=== PATIENT | female | born 1935 | race Caucasian/White ===

== ENCOUNTER → 2017-05-11 | Outpatient (CLI) | payer MEDICARE | LOC: LABWHC1 12:06 | PROVIDERS: ATTEND Internal Medicine | DX: Z53.9 Procedure and treatment not carried out, unspecified reason (principal) | CPT/HCPCS: 36415; 85025; 86850; 86900; 86901; 86920 ==

== ENCOUNTER → 2018-05-10 | Outpatient (CLI) | payer MEDICARE ==
--- NOTE | 2018-05-11 08:07 | MM ---
Reason for exam: additional evaluation requested from prior study. History: Patient is postmenopausal. Family history of breast cancer in sister at age 74. Took estrogen for 2 years beginning at age 59. Took progesterone for 2 years beginning at age 59. Physical Findings: Nurse did not find any significant physical abnormalities on exam. MG 3D Diag Mammo W/Cad RANDY Bilateral CC and MLO view(s) were taken. There are scattered fibroglandular densities. There are bilater massed stable from prior at posterion depth right upper outer quadrant and left lower outer quadrant midle depth. There are benign appearing overall stable calcifications. No suspicios abnormality. Right biopsy marker noted. These results were verbally communicated with the patient and result sheet given to the patient on 05/10/18. ASSESSMENT: Benign, BI-RAD 2 RECOMMENDATION: Routine screening mammogram of both breasts in 1 year.
--- NOTE | 2018-05-11 08:14 | USB ---
Reason for exam: additional evaluation requested from prior study. History: Patient is postmenopausal. Family history of breast cancer in sister at age 74. Took estrogen for 2 years beginning at age 59. Took progesterone for 2 years beginning at age 59. Physical Findings: Nurse did not find any significant physical abnormalities on exam. US Breast RT Right complete breast ultrasound includes all four quadrants, the retroareolar region and axilla. Finding demonstrates a 0.4 x 0.2 x 0.1m cluster oval cystic lesion at 12 o'clock. No suspicious sonographic findings. ASSESSMENT: Benign, BI-RAD 2 RECOMMENDATION: Routine screening mammogram of both breasts in 1 year.
== END | disposition home or self-care (01) ==
LOC: RADMAMWWP 12:19
PROVIDERS: ATTEND Internal Medicine
DX: R92.8 Other abnormal and inconclusive findings on diagnostic imaging of breast (principal)
CPT/HCPCS: 77066; 76641; G0279; 77062

== ENCOUNTER → 2018-12-06 | Outpatient (CLI) | payer MEDICARE ==
[2018-12-06 16:31] LABS: HCT 38.8 % (34.0-46.0); Hypochromasia Marked; MCH 25.3 pg (25.0-35.0); MCHC 28.5 g/dL (31.0-37.0); MCV 88.9 fL (80.0-100.0); Mean Platelet Volume 7.9; Platelet Count 209 k/uL (150-450); RBC 4.36 m/uL (3.80-5.40); RDW 15.1 % (11.5-15.5); WBC 4.5 k/uL (3.8-10.6)
[2018-12-07 02:07] LABS: Anion Gap 9.5 mmol/L (4.00-12.00); Calcium 9.3 mg/dL (8.7-10.3); Carbon Dioxide 22.5 mmol/L (21.6-31.8); Potassium 4.3 mmol/L (3.5-5.5)
== END | disposition home or self-care (01) ==
LOC: LABWHC1 16:00
PROVIDERS: ATTEND Internal Medicine Interventional Cardiology
DX: I25.10 Atherosclerotic heart disease of native coronary artery without angina pectoris (principal); D64.9 Anemia, unspecified
CPT/HCPCS: 36415; 80048; 85027

== ENCOUNTER 2018-12-28 09:13 | Day surgery (SDC) | payer MEDICARE ==
[2018-12-17 15:40] VITALS: BMI 29.5
[~2018-12-28 09:13] MED LIST: ALPRAZolam 0.25 MG TAB PO PRN; ALPRAZolam 0.5 MG TAB PO PRN; ASPIRIN 325 MG TAB PO STA; ATORVASTATIN 80 MG TAB PO STA; NITROGLYCERIN SL TABS 0.4 MG TAB SUBLINGUAL PRN; SODIUM CHLORIDE 0.9% 1,000 ML in EMPTY BAG 1 BAG IV ONE
[2018-12-28] MEDS ORDERED: SODIUM CHLORIDE 0.9% 1,000 ML IV ONE (10:49)
[2018-12-28] MEDS ORDERED: HEPARIN SODIUM 1,000 UN/ML (10ML VL) ONE (10:52)
[2018-12-28] MEDS ORDERED: VERAPAMIL 2.5 MG/ML 2 ML AMP ONE (10:52)
[2018-12-28] MEDS ORDERED: LIDOCAINE 1% INJ 10MG/ML (20 ML MDV) ONE (10:52)
[2018-12-28] MEDS ORDERED: MIDAZOLAM 2 MG/2 ML VIAL IVP ONE ×2 (11:18→11:23)
[2018-12-28] MEDS ORDERED: VERAPAMIL SYRINGE (5 MG/10 ML) INTRAARTER ONE (11:25)
[2018-12-28] MEDS ORDERED: HEPARIN SODIUM 1,000 UN/ML (10ML VL) IV ONE (11:28)
[2018-12-28] MEDS ORDERED: NITROGLYCERIN SL TABS 0.4 MG TAB SUBLINGUAL ONE (11:45)
[2018-12-28] MEDS ORDERED: BIVALIRUDIN BOLUS 250 MG/50 ML IV ONE (11:45)
[2018-12-28] MEDS ORDERED: NITROGLYCERIN 1000MCG/10ML SYRINGE INTRACORON ONE ×3 (11:46→12:08)
[2018-12-28] MEDS ORDERED: BIVALIRUDIN 250 MG in SODIUM CHLORIDE 0.9% 50 ML IV ONE (11:46)
[2018-12-28] MEDS ORDERED: IOPAMIDOL-370 100ML BTL INJ ONE ×2 (11:51→12:12)
[2018-12-28] MEDS ORDERED: CLOPIDOGREL 75 MG TAB ONE (12:07)
--- NOTE | 2018-12-28 12:58 | CC ---
CARDIAC CATHETERIZATION REPORT TITLE OF PROCEDURE: Left heart catheterization, coronary angiography and PTCA and stenting of proximal LAD. PERFORMED BY: Dr. Vish Starks. Moderate conscious sedation time was 51 minutes. CLINICAL INFORMATION: Bennie Zaragoza is an 83-year-old lady with a known history of hypertension, hyperlipidemia, who has been having nondescript chest tightness and pressure, had a stress test which revealed anteroapical reversible defect suggestive of ischemia. She was therefore advised coronary angiography. Risks, benefits, options were explained in detail. PROCEDURE NOTE: Under local anesthesia and strict aseptic precautions, a 6-I[place]ic introducer was placed in the right radial artery. Using a JR4 catheter, I performed selective coronary angiography of the RCA. Using an Ultimate 1 catheter I performed selective coronary angiography of the left system. LV pressures were checked with the right catheter but did not do an LV-gram. Following this, I proceeded to perform PCI of the proximal LAD which had a 70% lesion. CARDIAC CATHETERIZATION FINDINGS: The left ventricular end-diastolic pressure was 14 mmHg without any gradient across the aortic valve. CORONARY ANGIOGRAPHY FINDINGS: RIGHT CORONARY ARTERY: Very super dominant vessel, has no significant disease in the proximal mid and distal portion, bifurcates into a larger PLV, smaller PDA both of which have minor irregularities. The PLV has about a 40% lesion in the midportion. Large vessel with a large distribution. No significant disease overall in the super dominant RCA. LEFT MAIN CORONARY ARTERY: Very short vessel that immediately bifurcates into LAD and circumflex. No significant disease in the left main. LEFT ANTERIOR DESCENDING CORONARY ARTERY: This has a very eccentric proximal 75% to 80% lesion and then it gives off 2 diagonal branches and after this at the origin of 2 septal branches, there is a 40% narrowing and the vessel decreases in caliber, runs all the way to the apex supplying a fair amount of myocardium. Distally the vessel is small in caliber, the distal 1/4, and it divides into 2 small branches that curves over the apex to supply the inferoapical portion of left ventricle. The LAD therefore in the midportion has a 40% lesion proximally, has a 75% to 80% lesion and there are 2 diagonal branches that come up between these 2 lesions. In multiple projections, the mid lesion does not look significant. Distally, however, there is diffuse disease in the LAD and it divides into 2 branches. LEFT POSTERIOR CIRCUMFLEX CORONARY ARTERY: Technically nondominant vessel gives off a high first obtuse marginal that runs laterally, divides into 2 branches. No significant disease. Rest of the circumflex has minor irregularities. No significant disease is noted in the nondominant circumflex system. LEFT VENTRICULOGRAM: This was not performed. FINAL IMPRESSION: This patient has a right dominant system, 40% PLV lesion of the RCA. Otherwise, no significant disease. Left main is free of significant disease and nondominant circumflex is free of significant disease. Proximal LAD has a 75% to 80% lesion. Mid LAD has a 40% to 45% lesion and diffuse disease in the distal LAD noted. Filling pressures are normal and there is no gradient across aortic valve. RECOMMENDATION: I recommended PCI of LAD and performed in the same setting. PCI PROCEDURE DETAILS: Initially I tried an XBLAD 3.5 catheter but with this I was deep the circumflex and therefore I switched over to a JL3.5. With this catheter, I advanced a BMW wire and kept it in the diagonal branch. Another BMW was introduced with steeper curved and I was able to get into the LAD without a problem. Without predilatation, a 8 mm long 3.25 caliber Xience stent was deployed at 14 atmospheres. Patient had chest pain and precordial ST elevation. Excellent angiographic result was achieved. The patient received Angiomax bolus and infusion as per protocol and 600 mg of Plavix were given. Excellent angiographic result was achieved. The mid lesion beyond the stented segment after the 2 diagonal branches was no more than 40% to 45% in multiple projections and therefore no intervention was performed. After this lesion, the entire vessel had mild diffuse disease throughout and gave of distally 2 branches. Excellent angiographic result without complication was achieved. Results were discussed with the patient and family and I expect her to be discharged tomorrow on dual antiplatelet therapy. MMODL / IJN: [id number] /
[2018-12-28] MEDS: SODIUM CHLORIDE 0.9% 1,000 ML IV SCH (13:22)
[2018-12-28] MEDS: LISINOPRIL 10 MG TAB PO SCH (16:47)
[2018-12-28] MEDS ORDERED: amLODIPine 5 MG TAB PO STA (18:06)
[2018-12-28] MEDS ORDERED: METOPROLOL TARTRATE 25 MG TAB PO SCH (21:00)
[2018-12-28] MEDS: METOPROLOL TARTRATE 12.5 MG TAB PO SCH (21:11)
[2018-12-28 22:18] LABS: Magnesium 1.8 mg/dL (1.6-2.3); Potassium 4.2 mmol/L (3.5-5.1)
[2018-12-29] MEDS: SODIUM CHLORIDE 0.9% 1,000 ML IV SCH (01:08)
[2018-12-29 07:47] LABS: Basophils % (A) 1 %; Eosinophils # (A) 0.1 k/uL (0-0.7); Eosinophils % (A) 3 %; HCT 34.2 % (34.0-46.0); HGB 10.2 gm/dL (11.4-16.0); Hypochromasia Marked; Lymphocytes # (A) 0.7 k/uL (1.0-4.8); Lymphocytes % (A) 16 %; MCH 26.3 pg (25.0-35.0); MCHC 29.9 g/dL (31.0-37.0); Mean Platelet Volume 8.8; Monocytes # (A) 0.3 k/uL (0-1.0); Monocytes % (A) 8 %; Neutrophils # (A) 3.1 k/uL (1.3-7.7); Neutrophils % (A) 71 %; Platelet Count 161 k/uL (150-450); RBC 3.88 m/uL (3.80-5.40); RDW 14.5 % (11.5-15.5); WBC 4.4 k/uL (3.8-10.6)
[2018-12-29 07:48] LABS: Anion Gap 4 mmol/L; Blood Urea Nitrogen 22 mg/dL (7-17); Calcium 8.9 mg/dL (8.4-10.2); Carbon Dioxide 24 mmol/L (22-30); Chloride 112 mmol/L (98-107); Glucose 95 mg/dL (74-99); Potassium 4.8 mmol/L (3.5-5.1); Sodium 140 mmol/L (137-145)
[2018-12-29] MEDS: METOPROLOL TARTRATE 12.5 MG TAB PO SCH (08:08)
[2018-12-29] MEDS: LISINOPRIL 10 MG TAB PO SCH (08:08)
[2018-12-29 08:22] VITALS: BP 123/58; PULSE 89; RESP 18; TEMP 97.4
--- NOTE | 2018-12-29 08:35 | DS ---
DISCHARGE SUMMARY DATE OF ADMISSION: 12/28/2018 DATE OF DISCHARGE: 12/29/2018 DIAGNOSES: 1. Unstable angina. 2. Cardiomyopathy. 3. Hypertension. PROCEDURES PERFORMED: 1. Left heart catheterization and coronary angiography. 2. PTCA and stenting of proximal LAD with a drug-eluting stent. CLINICAL INFORMATION: Mr. Zaragoza was admitted for elective cardiac cath and possible PCI yesterday. Procedure was performed from right radial approach. The proximal LAD had a 70%-80% eccentric stenosis. This was stented with a drug-eluting stent. There was another mid LAD lesion of 45%, which was not addressed. Excellent angiographic result was achieved. Post PCI course was unremarkable. EKG revealed sinus mechanism with left bundle which is not new for her. Labs are unremarkable compared to baseline labs. Blood pressure is 130/70 pulse rate is 62 per minute. S1-S2 heard normally, short systolic murmur. Lungs are clear. Abdomen and lower extremity exam unchanged. Right radial cath site is clean and dry with a good pulse. EKG and labs were reviewed. Patient can be discharged and she will see me in the office this Thursday at 4 pm. Discharge instructions regarding activity, diet and medications were given. MMODL / IJN: [id number] /
[2018-12-29] MEDS ORDERED: CLOPIDOGREL 75 MG TAB PO SCH (09:00)
[2018-12-29] MEDS ORDERED: ATORVASTATIN 40 MG TAB PO SCH (09:00)
[2018-12-29] MEDS ORDERED: ASPIRIN 81 MG PO SCH (09:00)
== END 2018-12-29 09:18 | disposition home or self-care (01) ==
LOC: CATHCVL 09:13 → 3SCARD 12:17 → CATHCVL 12-29 09:18
PROVIDERS: ATTEND Internal Medicine Interventional Cardiology
DX: I25.110 Atherosclerotic heart disease of native coronary artery with unstable angina pectoris (principal); I10 Essential (primary) hypertension; E78.5 Hyperlipidemia, unspecified; R94.39 Abnormal result of other cardiovascular function study; I42.9 Cardiomyopathy, unspecified; E78.00 Pure hypercholesterolemia, unspecified; Z72.0 Tobacco use; Z79.899 Other long term (current) drug therapy; Z88.5 Allergy status to narcotic agent
CPT/HCPCS: 93458; 80048; 83735; 84132; 85025; C9600; C1887 ×2; C1769 ×3; C1874; C1894; J2250; J1644; J0583; Q9967

== ENCOUNTER 2019-03-10 10:43 | Inpatient (IN) | payer MEDICARE ==
[2019-03-10] MEDS ORDERED: PANTOPRAZOLE 40 MG/10 ML VIAL IVP STA (11:48)
[2019-03-10] MEDS ORDERED: SODIUM CHLORIDE 0.9% 500 ML 500 ML IV STA (11:48)
--- NOTE | 2019-03-10 12:09 | ED ---
General Adult HPI - General Chief complaint: GI Bleed Stated complaint: Internal Bleeding Time Seen by Provider: 03/10/19 11:00 Source: patient, RN notes reviewed Mode of arrival: wheelchair Limitations: no limitations - History of Present Illness Initial comments: This is an 83-year-old female who presents emergency Department with a history of GI bleed with transfusions. Patient states she was told at the doctor's office that her hemoglobin was 6 and she has been feeling weak and lightheaded lately and getting out of breath quickly with any small exertion so she was told to come to the emergency department. Patient denies any pain. Patient does states she's been having black stools no obviously red bloody stools. Patient states she is on Plavix and aspirin. Patient states she didn't take aspirin today but did take her Plavix. Patient denies any chest pain or palpitations. Patient does state she has shortness of breath with exertion evening walking a few feet. Patient denies headache patient denies numbness weakness. Patient denies any near syncopal episode but does feel lightheaded at times. - Related Data Home Medications Medication Instructions Recorded Confirmed Ferrous Sulfate [Iron] 65 mg PO DAILY 09/14/17 12/28/18 Metoprolol Succinate [Toprol XL] 25 mg PO DAILY 09/14/17 12/28/18 Previous Rx's Medication Instructions Recorded Aspirin 81 mg PO DAILY #90 chew 12/29/18 Atorvastatin [Lipitor] 40 mg PO DAILY #90 tab 12/29/18 Clopidogrel [Plavix] 75 mg PO DAILY #90 tab 12/29/18 Lisinopril [Zestril] 10 mg PO BID #60 tab 12/29/18 Nitroglycerin Sl Tabs [Nitrostat] 0.4 mg SUBLINGUAL Q5M PRN #25 tab 12/29/18 Allergies Allergy/AdvReac Type Severity Reaction Status Date / Time codeine Allergy Nausea & Verified 12/17/18 15:30 Vomiting Sulfa (Sulfonamide Allergy Unknown Verified 12/17/18 15:30 Antibiotics) Review of Systems ROS Statement: Those systems with pertinent positive or pertinent negative responses have been documented in the HPI. ROS Other: All systems not noted in ROS Statement are negative. Past Medical History Past Medical History: GI Bleed, Hypertension Additional Past Medical History / Comment(s): ANEMIA, HIATAL HERNIA, SOB History of Any Multi-Drug Resistant Organisms: None Reported Past Surgical History: Cholecystectomy, Heart Catheterization Additional Past Surgical History / Comment(s): D&C, EGD, COLONOSCOPY Past Anesthesia/Blood Transfusion Reactions: Postoperative Nausea & Vomiting (PONV) Past Psychological History: No Psychological Hx Reported Smoking Status: Former smoker Past Alcohol Use History: None Reported Past Drug Use History: None Reported General Exam - General Exam Comments Initial Comments: GENERAL: Patient is well-developed and well-nourished. Patient is nontoxic and well- hydrated and is in mild distress. ENT: Neck is soft and supple. No significant lymphadenopathy is noted. Oropharynx is clear. Moist mucous membranes. Neck has full range of motion without eliciting any pain. EYES: The sclera were anicteric and conjunctiva are pale. Extraocular movements were intact and pupils were equal round and reactive to light. Eyelids were unremarkable. PULMONARY: Unlabored respirations. Good breath sounds bilaterally. No audible rales rhonchi or wheezing was noted. CARDIOVASCULAR: There is a regular rate and rhythm without any murmurs gallops or rubs. ABDOMEN: Soft and nontender with normal bowel sounds. SKIN: Patient's skin is pale. NEUROLOGIC: Patient is alert and oriented x3. Cranial nerves II through XII are grossly intact. Motor and sensory are also intact. Normal speech, volume and content. Symmetrical smile. MUSCULOSKELETAL: Normal extremities with adequate strength and full range of motion. No lower extremity swelling or edema. No calf tenderness. LYMPHATICS: No significant lymphadenopathy is noted PSYCHIATRIC: Normal psychiatric evaluation. Limitations: no limitations Course Vital Signs 03/10/19 03/10/19 03/10/19 10:48 12:22 13:29 Temperature 97.7 F 97.8 F Pulse Rate 74 69 64 Respiratory 18 16 16 Rate Blood Pressure 123/55 108/54 127/65 O2 Sat by Pulse 99 100 100 Oximetry Medical Decision Making - Medical Decision Making EKG shows sinus rhythm with occasional PVC at 69 bpm OK interval 230 QRS is under 12 QT interval 426 QTC is 456. Patient's EKG shows no ST segment elevation or depression. Patient's hemoglobin was 5.8. I ordered 2 units of packed red blood cells. I spoke with some physicians agreed to accept the patient admitted the patient wrote admitting orders I consult to the ICU doctor to place the patient in the ICU. - Lab Data Result diagrams: 03/10/19 12:58 03/10/19 12:58 Lab Results 03/10/19 03/10/19 03/10/19 Range/Units 12:58 12:58 12:58 WBC 4.8 (3.8-10.6) k/uL RBC 2.54 L (3.80-5.40) m/uL Hgb 5.8 L* (11.4-16.0) gm/dL Hct 20.9 L (34.0-46.0) % MCV 82.5 (80.0-100.0) fL MCH 22.9 L (25.0-35.0) pg MCHC 27.8 L (31.0-37.0) g/dL RDW 13.9 (11.5-15.5) % Plt Count 220 (150-450) k/uL Neutrophils % 74 % Lymphocytes % 14 % Monocytes % 7 % Eosinophils % 1 % Basophils % 1 % Neutrophils # 3.6 (1.3-7.7) k/uL Lymphocytes # 0.7 L (1.0-4.8) k/uL Monocytes # 0.4 (0-1.0) k/uL Eosinophils # 0.1 (0-0.7) k/uL Basophils # 0.0 (0-0.2) k/uL Hypochromasia Marked Poikilocytosis Slight PT 9.9 (9.0-12.0) sec INR 0.9 (<1.2) APTT 18.0 L (22.0-30.0) sec Sodium 139 (137-145) mmol/L Potassium 4.3 (3.5-5.1) mmol/L Chloride 111 H (98-107) mmol/L Carbon Dioxide 25 (22-30) mmol/L Anion Gap 3 mmol/L BUN 27 H (7-17) mg/dL Creatinine 0.62 (0.52-1.04) mg/dL Est GFR (CKD-EPI)AfAm >90 (>60 ml/min/1.73 sqM) Est GFR (CKD-EPI)NonAf 83 (>60 ml/min/1.73 sqM) Glucose 98 (74-99) mg/dL Calcium 8.7 (8.4-10.2) mg/dL Magnesium 2.2 (1.6-2.3) mg/dL Total Bilirubin 0.1 L (0.2-1.3) mg/dL AST 18 (14-36) U/L ALT 15 (9-52) U/L Alkaline Phosphatase 45 (38-126) U/L Troponin I (0.000-0.034) ng/mL Total Protein 5.4 L (6.3-8.2) g/dL Albumin 2.9 L (3.5-5.0) g/dL 03/10/19 Range/Units 12:58 WBC (3.8-10.6) k/uL RBC (3.80-5.40) m/uL Hgb (11.4-16.0) gm/dL Hct (34.0-46.0) % MCV (80.0-100.0) fL MCH (25.0-35.0) pg MCHC (31.0-37.0) g/dL RDW (11.5-15.5) % Plt Count (150-450) k/uL Neutrophils % % Lymphocytes % % Monocytes % % Eosinophils % % Basophils % % Neutrophils # (1.3-7.7) k/uL Lymphocytes # (1.0-4.8) k/uL Monocytes # (0-1.0) k/uL Eosinophils # (0-0.7) k/uL Basophils # (0-0.2) k/uL Hypochromasia Poikilocytosis PT (9.0-12.0) sec INR (<1.2) APTT (22.0-30.0) sec Sodium (137-145) mmol/L Potassium (3.5-5.1) mmol/L Chloride (98-107) mmol/L Carbon Dioxide (22-30) mmol/L Anion Gap mmol/L BUN (7-17) mg/dL Creatinine (0.52-1.04) mg/dL Est GFR (CKD-EPI)AfAm (>60 ml/min/1.73 sqM) Est GFR (CKD-EPI)NonAf (>60 ml/min/1.73 sqM) Glucose (74-99) mg/dL Calcium (8.4-10.2) mg/dL Magnesium (1.6-2.3) mg/dL Total Bilirubin (0.2-1.3) mg/dL AST (14-36) U/L ALT (9-52) U/L Alkaline Phosphatase (38-126) U/L Troponin I <0.012 (0.000-0.034) ng/mL Total Protein (6.3-8.2) g/dL Albumin (3.5-5.0) g/dL Disposition Clinical Impression: GI bleed, Anemia, Lightheadedness Disposition: ADMITTED IP TO THIS HOSP Referrals: Jose Shetty MD [Primary Care Provider] - 1-2 days Time of Disposition: 14:12
[2019-03-10 13:45] LABS: ALT 15 U/L (9-52); AST 18 U/L (14-36); African American GFR (CKD) >90 (>60 ml/min/1.73 sqM); Albumin 2.9 g/dL (3.5-5.0); Alkaline Phosphatase 45 U/L (38-126); Anion Gap 3 mmol/L; Blood Urea Nitrogen 27 mg/dL (7-17); Calcium 8.7 mg/dL (8.4-10.2); Carbon Dioxide 25 mmol/L (22-30); Chloride 111 mmol/L (98-107); Glucose 98 mg/dL (74-99); Magnesium 2.2 mg/dL (1.6-2.3); Potassium 4.3 mmol/L (3.5-5.1); Sodium 139 mmol/L (137-145); Total Bilirubin 0.1 mg/dL (0.2-1.3); Total Protein 5.4 g/dL (6.3-8.2)
[2019-03-10 13:51] LABS: INR 0.9 (<1.2); Prothrombin Time 9.9 sec (9.0-12.0)
[2019-03-10 13:52] LABS: Basophils % (A) 1 %; Eosinophils # (A) 0.1 k/uL (0-0.7); Eosinophils % (A) 1 %; HCT 20.9 % (34.0-46.0); Hypochromasia Marked; Lymphocytes # (A) 0.7 k/uL (1.0-4.8); Lymphocytes % (A) 14 %; MCH 22.9 pg (25.0-35.0); MCHC 27.8 g/dL (31.0-37.0); MCV 82.5 fL (80.0-100.0); Monocytes # (A) 0.4 k/uL (0-1.0); Monocytes % (A) 7 %; Neutrophils # (A) 3.6 k/uL (1.3-7.7); Neutrophils % (A) 74 %; Platelet Count 220 k/uL (150-450); Poikilocytosis Slight; RBC 2.54 m/uL (3.80-5.40); RDW 13.9 % (11.5-15.5); WBC 4.8 k/uL (3.8-10.6)
[2019-03-10 14:02] LABS: HGB 5.8 gm/dL (11.4-16.0)
[2019-03-10] MEDS ORDERED: NALOXONE 0.4 MG/ML 1 ML VIAL IV PRN (14:14)
[2019-03-10 16:28] VITALS: BMI 29.2
[2019-03-10 16:29] LABS: Glucose,Whole Blood 98 mg/dL (75-99)
--- NOTE | 2019-03-10 16:42 | P.HPIM ---
History of Present Illness H&P Date: 03/10/19 Chief Complaint: Fatigue weakness and dark stools The patient is a 83-year-old female with a past medical history of CAD with recent angioplasty and subsequent stenting of the proximal LAD in 01/14 currently on antiplatelet therapy with Plavix and aspirin who presents to the ER via private vehicle after being referred from her PCPs clinic patient presented with increased weakness and fatigue. Apparently over the last 2 weeks patient has noted some dark tarry looking stools, and has been increasingly fatigued and weak and reports some associated exertional dyspnea and she is no longer able to walk across her room without being short of breath, she denies any cough but reports subjective fevers and chills. The patient reports some lightheadedness, she denies any nausea vomiting or abdominal pain but reports constipation. The patient reports a previous history of GI bleed several EGDs and colonoscopies and has never been able to find the etiology of her bleed. The patient denies any chest pain, denies lower extremity swelling,denies any bright red blood per rectum. In her PCPs office she was noted to have a hemoglobin of approximately 6.7 referred to the ER. In the ED she had a comprehensive workup Hemoglobin was 5.8, PT INR 9.9 and 0.9 respectively, sodium 139 potassium 4.3, serum bicarb 25, BUN 27, creatinine 0.62, magnesium 2.2 troponin less than 0.012. EKG showing sinus rhythm with occasional PVCs. Apparently a stool guaiac was sent and is pending, Patient was typed and crossed and is receiving her first unit of packed RBCs. She's recommended for admission for GI bleed Review of Systems The pertinent positives per HPI all other review of systems otherwise negative Past Medical History Past Medical History: Coronary Artery Disease (CAD), GI Bleed, Hypertension Additional Past Medical History / Comment(s): ANEMIA, HIATAL HERNIA, SOB History of Any Multi-Drug Resistant Organisms: None Reported Past Surgical History: Cholecystectomy, Heart Catheterization Additional Past Surgical History / Comment(s): D&C, EGD, COLONOSCOPY Past Anesthesia/Blood Transfusion Reactions: Postoperative Nausea & Vomiting (PONV) Past Psychological History: No Psychological Hx Reported Smoking Status: Former smoker Past Alcohol Use History: None Reported Past Drug Use History: None Reported Medications and Allergies Home Medications Medication Instructions Recorded Confirmed Type Ferrous Sulfate [Iron] 325 mg PO DAILY 09/14/17 03/10/19 History Metoprolol Succinate [Toprol XL] 12.5 mg PO BID 09/14/17 03/10/19 History Aspirin 81 mg PO DAILY #90 chew 12/29/18 03/10/19 Rx Clopidogrel [Plavix] 75 mg PO DAILY #90 tab 12/29/18 03/10/19 Rx Nitroglycerin Sl Tabs [Nitrostat] 0.4 mg SUBLINGUAL Q5M PRN #25 tab 12/29/18 03/10/19 Rx Lisinopril [Zestril] 10 mg PO DAILY 03/10/19 03/10/19 History Pnv,Calcium 72/Iron/Folic Acid 1 tab PO DAILY 03/10/19 03/10/19 History [ Plus Tablet] Allergies Allergy/AdvReac Type Severity Reaction Status Date / Time codeine Allergy Nausea & Verified 03/10/19 14:36 Vomiting Sulfa (Sulfonamide Allergy Unknown Verified 03/10/19 14:36 Antibiotics) Physical Exam Vitals: Vital Signs Temp Pulse Resp BP Pulse Ox 03/10/19 16:19 96.6 F L 70 10 L 140/36 98 03/10/19 15:52 97.7 F 62 16 129/53 100 03/10/19 15:23 97.7 F 70 16 139/57 100 03/10/19 15:13 98.1 F 66 16 118/34 100 03/10/19 14:30 124/35 100 03/10/19 13:29 97.8 F 64 16 127/65 100 03/10/19 12:22 69 16 108/54 100 03/10/19 10:48 97.7 F 74 18 123/55 99 Intake and Output 03/10/19 03/10/19 03/10/19 06:59 14:59 22:59 Intake Total 0 Balance 0 Intake: Blood Product 0 Rc As-1 Unit 0 [id number] Other: Weight 74.843 kg Constitutional: No acute distress, conversant, pleasant Eyes: Anicteric sclerae, moist conjunctiva, no lid-lag, PERRLA ENMT: NC/AT,Oropharynx clear, no erythema, exudates Neck:Supple, FROM, no masses, or JVD, No carotid bruits; No thyromegaly Lungs: Clear to auscultation, Clear to percussion, Normal respiratory effort, no accessory muscle use Cardiovascular: Heart regular in rate and rhythm, No murmurs, gallops, or rubs no peripheral edema Abdominal: Soft Nontender, nom distended, no guarding, no rebound or rigidity, Normoactive bowel sounds No hepatomegaly, No splenomegaly, No palpable mass No abdominal wall hernia noted Skin: Normal temperature, tone, texture, turgor, No induration No subcutaneous nodules, No rash, lesions, No ulcers Extremities:No digital cyanosis No clubbing, Pedal pulses intact and symmetrical Radial pulses intact and symmetrical Normal gait and station, No calf tenderness Psychiatric: Alert and oriented to person, place and time, Appropriate affect Intact judgement Neuro: Muscles Strength 5/5 in all 4 extremities, Sensation to light touch grossly present throughout, Cranial nerves II-XII grossly intact. No focal sensory deficits Results CBC & Chem 7: 03/10/19 12:58 03/10/19 12:58 Labs: Abnormal Lab Results - Last 24 Hours (Table) 03/10/19 03/10/19 03/10/19 Range/Units 12:58 12:58 12:58 RBC 2.54 L (3.80-5.40) m/uL Hgb 5.8 L* (11.4-16.0) gm/dL Hct 20.9 L (34.0-46.0) % MCH 22.9 L (25.0-35.0) pg MCHC 27.8 L (31.0-37.0) g/dL Lymphocytes # 0.7 L (1.0-4.8) k/uL APTT 18.0 L (22.0-30.0) sec Chloride (98-107) mmol/L BUN (7-17) mg/dL Total Bilirubin (0.2-1.3) mg/dL Total Protein (6.3-8.2) g/dL Albumin (3.5-5.0) g/dL Crossmatch See Detail 03/10/19 Range/Units 12:58 RBC (3.80-5.40) m/uL Hgb (11.4-16.0) gm/dL Hct (34.0-46.0) % MCH (25.0-35.0) pg MCHC (31.0-37.0) g/dL Lymphocytes # (1.0-4.8) k/uL APTT (22.0-30.0) sec Chloride 111 H (98-107) mmol/L BUN 27 H (7-17) mg/dL Total Bilirubin 0.1 L (0.2-1.3) mg/dL Total Protein 5.4 L (6.3-8.2) g/dL Albumin 2.9 L (3.5-5.0) g/dL Crossmatch Assessment and Plan (1) GI bleed Current Visit: Yes Status: Acute Code(s): K92.2 - GASTROINTESTINAL HEMORRHAGE, UNSPECIFIED SNOMED Code(s): 91893548 (2) Normocytic anemia due to blood loss Current Visit: Yes Status: Acute Code(s): D50.0 - IRON DEFICIENCY ANEMIA SECONDARY TO BLOOD LOSS (CHRONIC) SNOMED Code(s): 262343538 (3) Essential hypertension Current Visit: Yes Status: Acute Code(s): I10 - ESSENTIAL (PRIMARY) HYPERTENSION SNOMED Code(s): 25756071 (4) Coronary artery disease Current Visit: Yes Status: Acute Code(s): I25.10 - ATHSCL HEART DISEASE OF [place] CORONARY ARTERY W/O ANG PCTRS SNOMED Code(s): 28964396 (5) Presence of stent in coronary artery in patient with coronary artery disease Current Visit: Yes Status: Acute Code(s): I25.10 - ATHSCL HEART DISEASE OF [place] CORONARY ARTERY W/O ANG PCTRS; Z95.5 - PRESENCE OF CORONARY ANGIOPLASTY IMPLANT AND GRAFT SNOMED Code(s): 078048909 Plan: Patient is admitted anticipated greater than 2 midnight stay with GI bleed presumably upper after presenting with symptomatic normocytic anemia secondary to acute blood loss with a hemoglobin of 5.8, currently receiving 1/2 unit of packed RBC transfusion. We'll order iron studies, repeat CBC post transfusion with plans to consult GI and cardiology as a patient is currently on Plavix after recently having a stent placed in 01/14. We'll continue supportive therapy with antiemetics continue IV fluids and PPI therapy. We'll continue to follow her clinical course and continue clear liquid diet CODE STATUS: Full code Discussed plan of care with: Patient Anticipated discharge: 1-[address]: Home . Time with Patient: Greater than 30
[2019-03-10] MEDS ORDERED: ONDANSETRON 4 MG/2 ML VIAL IVP PRN (16:48)
--- NOTE | 2019-03-10 16:55 | P.CNPUL ---
History of Present Illness Consult date: 03/10/19 Chief complaint: Profound anemia, generalized weakness History of present illness: 83-year-old female patient presented to the ED as the patient was told by her doctor's office that hemoglobin was 6. Clinically the patient was feeling weak and lightheaded and she was getting more short of breath with activity and exertion. For that reason she came into the emergency department. She denied having any chest pain. She stated that she had been having black tarry stools. The patient is on a combination of aspirin and Plavix. No angina. No altered mentation. No abdominal pain. No nausea. No vomiting. No hematemesis. No syncope. In the ED, the patient was found to have a hemoglobin of 82. Rest of the blood work was essentially within normal limits. Total protein was at 5.4 with an albumin of 2.9. The patient is known to have coronary artery disease along with hypertension and hyperlipidemia. The patient had an abnormal stress test and for that reason the patient underwent a cardiac catheterization on 12/28/2018 and the patient was found to have proximal LAD lesion in the order of 80%, dominant right system with 40% PLV lesion of the RCA. There was another mid LAD lesion 40% noted. Filling pressures were normal and there was no gradient across the aortic valve. Patient underwent a successful PCI for LAD and discharged home and accommodation of aspirin and Plavix. Review of Systems Constitutional: Reports fatigue, Reports lethargy, Reports weakness Eyes: denies blurred vision, denies bulging eye, denies decreased vision Ears: deny: decreased hearing, ear discharge, earache, tinnitus Ears, nose, mouth and throat: Denies headache, Denies sore throat Breasts: absent: as per HPI, change in shape, gynecomastia, masses, nipple discharge, pain, skin changes, swelling Cardiovascular: Reports decreased exercise tolerance, Reports dyspnea on exer tion Respiratory: Reports dyspnea Genitourinary: Reports as per HPI Menstruation: Reports as per HPI Musculoskeletal: Reports as per HPI Musculoskeletal: absent: ankle pain, ankle stiffness, ankle swelling Integumentary: Reports as per HPI Neurological: Reports as per HPI, Reports weakness Psychiatric: Reports as per HPI Endocrine: Reports as per HPI Hematologic/Lymphatic: Reports as per HPI Allergic/Immunologic: Reports as per HPI Past Medical History Past Medical History: Coronary Artery Disease (CAD), GI Bleed, Hypertension Additional Past Medical History / Comment(s): ANEMIA, HIATAL HERNIA, SOB History of Any Multi-Drug Resistant Organisms: None Reported Past Surgical History: Cholecystectomy, Heart Catheterization Additional Past Surgical History / Comment(s): D&C, EGD, COLONOSCOPY Past Anesthesia/Blood Transfusion Reactions: Postoperative Nausea & Vomiting (PONV) Past Psychological History: No Psychological Hx Reported Smoking Status: Former smoker Past Alcohol Use History: None Reported Past Drug Use History: None Reported Medications and Allergies Home Medications Medication Instructions Recorded Confirmed Type Ferrous Sulfate [Iron] 325 mg PO DAILY 09/14/17 03/10/19 History Metoprolol Succinate [Toprol XL] 12.5 mg PO BID 09/14/17 03/10/19 History Aspirin 81 mg PO DAILY #90 chew 12/29/18 03/10/19 Rx Clopidogrel [Plavix] 75 mg PO DAILY #90 tab 12/29/18 03/10/19 Rx Nitroglycerin Sl Tabs [Nitrostat] 0.4 mg SUBLINGUAL Q5M PRN #25 tab 12/29/18 03/10/19 Rx Lisinopril [Zestril] 10 mg PO DAILY 03/10/19 03/10/19 History Pnv,Calcium 72/Iron/Folic Acid 1 tab PO DAILY 03/10/19 03/10/19 History [ Plus Tablet] Allergies Allergy/AdvReac Type Severity Reaction Status Date / Time codeine Allergy Nausea & Verified 03/10/19 14:36 Vomiting Sulfa (Sulfonamide Allergy Unknown Verified 03/10/19 14:36 Antibiotics) Physical Exam Vitals: Vital Signs Temp Pulse Resp BP Pulse Ox 03/10/19 15:23 97.7 F 70 16 139/57 100 03/10/19 15:13 98.1 F 66 16 118/34 100 03/10/19 14:30 124/35 100 03/10/19 13:29 97.8 F 64 16 127/65 100 03/10/19 12:22 69 16 108/54 100 03/10/19 10:48 97.7 F 74 18 123/55 99 Intake and Output 03/10/19 03/10/19 03/10/19 06:59 14:59 22:59 Intake Total 0 Balance 0 Intake: Blood Product 0 Rc As-1 Unit 0 [id number] Other: Weight 74.843 kg The patient appeared well nourished and normally developed. Vital signs as documented. Head exam is unremarkable. No scleral icterus or corneal arcus noted. Neck is without jugular venous distension, thyromegaly, or carotid bruits. Carotid upstrokes are brisk bilaterally. Lungs are clear to auscultation and percussion. Cardiac exam reveals the PMI to be normally sized and situated. Rhythm is regular. First and second heart sounds normal. No murmurs, rubs or gallops. Abdominal exam reveals normal bowel sounds, no masses, no organomegaly and no aortic enlargement. Extremities are nonedematous and both femoral and pedal pulses are normal. Examination of the skin revealed no evidence of significant rashes, suspicious appearing nevi or other concerning lesions.. neurologically awake and alert and is no focal neurological deficit. Results - Laboratory Findings CBC and BMP: 03/10/19 12:58 03/10/19 12:58 PT/INR, D-dimer PT 9.9 sec (9.0-12.0) 03/10/19 12:58 INR 0.9 (<1.2) 03/10/19 12:58 Abnormal lab findings: Abnormal Labs 03/10/19 03/10/19 03/10/19 12:58 12:58 12:58 RBC 2.54 L Hgb 5.8 L* Hct 20.9 L MCH 22.9 L MCHC 27.8 L Lymphocytes # 0.7 L APTT 18.0 L Chloride BUN Total Bilirubin Total Protein Albumin Crossmatch See Detail 03/10/19 12:58 RBC Hgb Hct MCH MCHC Lymphocytes # APTT Chloride 111 H BUN 27 H Total Bilirubin 0.1 L Total Protein 5.4 L Albumin 2.9 L Crossmatch Assessment and Plan Plan: 1 GI bleeding, likely of a upper GI source with drop in hemoglobin to 5.8. Previous history of peptic ulcer disease. The patient on a combination of aspirin and Plavix. The patient has been ordered to have 2 units of packed RBC. The rest of the coagulation profile is within normal limits. The patient is hemodynamically stable at this point in time. She is producing adequate amount of urine output. No shortness of breath or chest pain. The patient claims that she has had previous endoscopies. The exact he is not known. The garland machine operator person who did the procedure is not known. We will going to retrieve all this information. We are going to consult GI. 2 coronary artery disease with recent coronary intervention and stenting of the LAD currently on a combination of aspirin and Plavix 3 hypertension 4 blood loss anemia with hemoglobin of 5.8 5 weakness, exertional dyspnea and dizziness secondary to above Plan Transfer this patient to the intensive care unit. Transfuse the patient with attempted of 2 units of packed RBC. Keep aspirin and Plavix on hold. GI consultation for EGD/colonoscopy. We'll continue to follow.
[2019-03-10] MEDS: SODIUM CHLORIDE 0.9% 1,000 ML IV SCH (22:58)
[2019-03-11 01:26] LABS: HCT 27.8 % (34.0-46.0); Hypochromasia Marked; MCH 24.5 pg (25.0-35.0); MCHC 29.3 g/dL (31.0-37.0); MCV 83.8 fL (80.0-100.0); Mean Platelet Volume 7.5; Platelet Count 179 k/uL (150-450); Poikilocytosis Marked; RBC 3.32 m/uL (3.80-5.40); WBC 4.2 k/uL (3.8-10.6)
[2019-03-11 01:29] LABS: HGB 8.1 gm/dL (11.4-16.0)
[2019-03-11 02:54] LABS: Iron Saturation 43.33 (12.00-45.00)
[2019-03-11 05:16] LABS: Basophils % (A) 0 %; Eosinophils # (A) 0.1 k/uL (0-0.7); Eosinophils % (A) 3 %; HCT 26.7 % (34.0-46.0); HGB 7.8 gm/dL (11.4-16.0); Hypochromasia Marked; Lymphocytes # (A) 0.8 k/uL (1.0-4.8); Lymphocytes % (A) 20 %; MCH 24.1 pg (25.0-35.0); MCHC 29.2 g/dL (31.0-37.0); MCV 82.6 fL (80.0-100.0); Mean Platelet Volume 7.8; Monocytes # (A) 0.4 k/uL (0-1.0); Monocytes % (A) 10 %; Neutrophils # (A) 2.5 k/uL (1.3-7.7); Neutrophils % (A) 64 %; Platelet Count 191 k/uL (150-450); Poikilocytosis Marked; RBC 3.24 m/uL (3.80-5.40); RDW 14.9 % (11.5-15.5)
[2019-03-11 05:26] LABS: African American GFR (CKD) >90 (>60 ml/min/1.73 sqM); Anion Gap 2 mmol/L; Blood Urea Nitrogen 17 mg/dL (7-17); Calcium 8.8 mg/dL (8.4-10.2); Carbon Dioxide 24 mmol/L (22-30); Chloride 112 mmol/L (98-107); Glucose 85 mg/dL (74-99); Phosphorus 3.4 mg/dL (2.5-4.5); Sodium 138 mmol/L (137-145)
[2019-03-11] MEDS: PANTOPRAZOLE 40 MG/10 ML VIAL IV SCH (08:46)
[2019-03-11] MEDS: METOPROLOL TARTRATE 12.5 MG TAB PO SCH ×2 (08:46→20:23)
[2019-03-11] MEDS: SODIUM CHLORIDE 0.9% 1,000 ML IV SCH (08:46)
--- NOTE | 2019-03-11 12:21 | P.PN ---
Subjective Progress Note Date: 03/11/19 Patient doing well today serum examined at bedside, reports that she had a bowel movement that was dark but her second bowel movement was much improved, denies any lightheadedness or dizziness. I received 2 units packed RBC transfusion. Hemoglobin stabilizing at 7.8 today. Appears to be hemodynamically stable Objective - Vital Signs Vital signs: Vital Signs Temp 98 F 03/11/19 12:00 Pulse 65 03/11/19 12:00 Resp 12 03/11/19 12:00 BP 136/97 03/11/19 12:00 Pulse Ox 97 03/11/19 12:00 Intake & Output 03/10/19 03/11/19 03/11/19 18:59 06:59 18:59 Intake Total 310 1100 0 Output Total 0 250 0 Balance 310 850 0 Weight 74.843 kg 75.4 kg Intake: IV 480 0 Sodium Chloride 0.9% 1, 480 0 000 ml @ 60 mls/hr IV . [id number] [facility] Rx#:[id number] Blood Product 310 620 Rc As-1 Unit 310 [id number] Rc As-1 Unit 0 310 [id number] Output: Urine 0 250 0 Other: Voiding Method Bedpan Bedside Commode Bedside Commode # Voids 1 1 # Bowel Movements 1 - Exam Constitutional: No acute distress, conversant, pleasant Eyes: Anicteric sclerae, moist conjunctiva, no lid-lag, PERRLA ENMT: NC/AT,Oropharynx clear, no erythema, exudates Neck:Supple, FROM, no masses, or JVD, No carotid bruits; No thyromegaly Lungs: Clear to auscultation, Clear to percussion, Normal respiratory effort, no accessory muscle use Cardiovascular: Heart regular in rate and rhythm, No murmurs, gallops, or rubs no peripheral edema Abdominal: Soft Nontender, nom distended, no guarding, no rebound or rigidity, Normoactive bowel sounds No hepatomegaly, No splenomegaly, No palpable mass No abdominal wall hernia noted Skin: Normal temperature, tone, texture, turgor, No induration No subcutaneous nodules, No rash, lesions, No ulcers Extremities:No digital cyanosis No clubbing, Pedal pulses intact and symmetrical Radial pulses intact and symmetrical Normal gait and station, No calf tenderness Psychiatric: Alert and oriented to person, place and time, Appropriate affect Intact judgement Neuro: Muscles Strength 5/5 in all 4 extremities, Sensation to light touch grossly present throughout, Cranial nerves II-XII grossly intact. No focal sensory deficits - Labs CBC & Chem 7: 03/11/19 04:34 03/11/19 04:34 Labs: Abnormal Lab Results - Last 24 Hours (Table) 03/10/19 03/10/19 03/10/19 Range/Units 12:58 12:58 12:58 RBC 2.54 L (3.80-5.40) m/uL Hgb 5.8 L* (11.4-16.0) gm/dL Hct 20.9 L (34.0-46.0) % MCH 22.9 L (25.0-35.0) pg MCHC 27.8 L (31.0-37.0) g/dL Lymphocytes # 0.7 L (1.0-4.8) k/uL APTT 18.0 L (22.0-30.0) sec Chloride (98-107) mmol/L BUN (7-17) mg/dL Ferritin (10.0-291.0) ng/mL Total Bilirubin (0.2-1.3) mg/dL Total Protein (6.3-8.2) g/dL Albumin (3.5-5.0) g/dL Crossmatch See Detail 03/10/19 03/10/19 03/11/19 Range/Units 12:58 16:49 00:05 RBC 3.32 L (3.80-5.40) m/uL Hgb 8.1 L D (11.4-16.0) gm/dL Hct 27.8 L (34.0-46.0) % MCH 24.5 L (25.0-35.0) pg MCHC 29.3 L (31.0-37.0) g/dL Lymphocytes # (1.0-4.8) k/uL APTT (22.0-30.0) sec Chloride 111 H (98-107) mmol/L BUN 27 H (7-17) mg/dL Ferritin 5.5 L (10.0-291.0) ng/mL Total Bilirubin 0.1 L (0.2-1.3) mg/dL Total Protein 5.4 L (6.3-8.2) g/dL Albumin 2.9 L (3.5-5.0) g/dL Crossmatch 03/11/19 03/11/19 Range/Units 04:34 04:34 RBC 3.24 L (3.80-5.40) m/uL Hgb 7.8 L (11.4-16.0) gm/dL Hct 26.7 L (34.0-46.0) % MCH 24.1 L (25.0-35.0) pg MCHC 29.2 L (31.0-37.0) g/dL Lymphocytes # 0.8 L (1.0-4.8) k/uL APTT (22.0-30.0) sec Chloride 112 H (98-107) mmol/L BUN (7-17) mg/dL Ferritin (10.0-291.0) ng/mL Total Bilirubin (0.2-1.3) mg/dL Total Protein (6.3-8.2) g/dL Albumin (3.5-5.0) g/dL Crossmatch Assessment and Plan (1) GI bleed Narrative/Plan: * Suspect upper GI source * Check consulted to evaluate for upper endoscopy versus colonoscopy or both * Continue with PPI therapy * The patient previously on aspirin and Plavix, aspirin has been resumed by cardiology * Continue monitor hemoglobin Current Visit: Yes Status: Acute Code(s): K92.2 - GASTROINTESTINAL HEMORRHAGE, UNSPECIFIED SNOMED Code(s): 86271425 (2) Normocytic anemia due to blood loss Narrative/Plan: * Hemoglobin 7.8 * Appropriate response after receiving 2 units of packed RBCs * Continue to monitor his CBC * GI consult pending Current Visit: Yes Status: Acute Code(s): D50.0 - IRON DEFICIENCY ANEMIA SECONDARY TO BLOOD LOSS (CHRONIC) SNOMED Code(s): 293526773 (3) Essential hypertension Narrative/Plan: * Blood pressure stable controlled continue with metoprolol regimen Current Visit: Yes Status: Acute Code(s): I10 - ESSENTIAL (PRIMARY) HYPERTENSION SNOMED Code(s): 44918444 (4) Coronary artery disease Current Visit: Yes Status: Acute Code(s): I25.10 - ATHSCL HEART DISEASE OF [place] CORONARY ARTERY W/O ANG PCTRS SNOMED Code(s): 04940032 (5) Presence of stent in coronary artery in patient with coronary artery disease Narrative/Plan: * Cardiology following Current Visit: Yes Status: Acute Code(s): I25.10 - ATHSCL HEART DISEASE OF [place] CORONARY ARTERY W/O ANG PCTRS; Z95.5 - PRESENCE OF CORONARY ANGIOPLASTY IMPLANT AND GRAFT SNOMED Code(s): 574616387 Plan: Disposition * Anticipated discharge 1-2 days * Follow-up recommendations by cardiology and GI * Patient is stable for transfer to the general medical floor
--- NOTE | 2019-03-11 12:41 | P.PN ---
Subjective Progress Note Date: 03/11/19 The patient remains in the intensive care unit for GI bleeds. Note that he received a total of 2 units of packed RBC. Her hemoglobin is up to 7.5. Meanwhile, she did have another bloody melanotic stool and I'm not sure if this is leftovers bleeding or stool from previous episodes. In any rate, the patient is hemodynamically stable. She is taking clear liquid diet. She hasn't been seen by GI yet. She remains asymptomatic. No chest pain. No dizziness. No drop in her urine output. Serum iron level is 156. Renal function is also within normal limits. Objective - Vital Signs Vital signs: Vital Signs Temp 98 F 03/11/19 12:00 Pulse 65 03/11/19 12:00 Resp 12 03/11/19 12:00 BP 136/97 03/11/19 12:00 Pulse Ox 97 03/11/19 12:00 Intake & Output 03/10/19 03/11/19 03/11/19 18:59 06:59 18:59 Intake Total 310 1100 0 Output Total 0 250 0 Balance 310 850 0 Weight 74.843 kg 75.4 kg Intake: IV 480 0 Sodium Chloride 0.9% 1, 480 0 000 ml @ 60 mls/hr IV . [id number] [facility] Rx#:[id number] Blood Product 310 620 Rc As-1 Unit 310 [id number] Rc As-1 Unit 0 310 [id number] Output: Urine 0 250 0 Other: Voiding Method Bedpan Bedside Commode Bedside Commode # Voids 1 1 # Bowel Movements 1 - Exam The patient appeared well nourished and normally developed. Vital signs as documented. Head exam is unremarkable. No scleral icterus or corneal arcus noted. Neck is without jugular venous distension, thyromegaly, or carotid bruits. Carotid upstrokes are brisk bilaterally. Lungs are clear to auscultation and percussion. Cardiac exam reveals the PMI to be normally sized and situated. Rhythm is regular. First and second heart sounds normal. No murmurs, rubs or gallops. Abdominal exam reveals normal bowel sounds, no masses, no organomegaly and no aortic enlargement. Extremities are nonedematous and both femoral and pedal pulses are normal. Examination of the skin revealed no evidence of significant rashes, suspicious appearing nevi or other concerning lesions.. neurologically awake and alert and is no focal neurological deficit. - Labs CBC & Chem 7: 03/11/19 04:34 03/11/19 04:34 Labs: Abnormal Lab Results - Last 24 Hours (Table) 03/10/19 03/10/19 03/10/19 Range/Units 12:58 12:58 12:58 RBC 2.54 L (3.80-5.40) m/uL Hgb 5.8 L* (11.4-16.0) gm/dL Hct 20.9 L (34.0-46.0) % MCH 22.9 L (25.0-35.0) pg MCHC 27.8 L (31.0-37.0) g/dL Lymphocytes # 0.7 L (1.0-4.8) k/uL APTT 18.0 L (22.0-30.0) sec Chloride (98-107) mmol/L BUN (7-17) mg/dL Ferritin (10.0-291.0) ng/mL Total Bilirubin (0.2-1.3) mg/dL Total Protein (6.3-8.2) g/dL Albumin (3.5-5.0) g/dL Crossmatch See Detail 03/10/19 03/10/19 03/11/19 Range/Units 12:58 16:49 00:05 RBC 3.32 L (3.80-5.40) m/uL Hgb 8.1 L D (11.4-16.0) gm/dL Hct 27.8 L (34.0-46.0) % MCH 24.5 L (25.0-35.0) pg MCHC 29.3 L (31.0-37.0) g/dL Lymphocytes # (1.0-4.8) k/uL APTT (22.0-30.0) sec Chloride 111 H (98-107) mmol/L BUN 27 H (7-17) mg/dL Ferritin 5.5 L (10.0-291.0) ng/mL Total Bilirubin 0.1 L (0.2-1.3) mg/dL Total Protein 5.4 L (6.3-8.2) g/dL Albumin 2.9 L (3.5-5.0) g/dL Crossmatch 03/11/19 03/11/19 Range/Units 04:34 04:34 RBC 3.24 L (3.80-5.40) m/uL Hgb 7.8 L (11.4-16.0) gm/dL Hct 26.7 L (34.0-46.0) % MCH 24.1 L (25.0-35.0) pg MCHC 29.2 L (31.0-37.0) g/dL Lymphocytes # 0.8 L (1.0-4.8) k/uL APTT (22.0-30.0) sec Chloride 112 H (98-107) mmol/L BUN (7-17) mg/dL Ferritin (10.0-291.0) ng/mL Total Bilirubin (0.2-1.3) mg/dL Total Protein (6.3-8.2) g/dL Albumin (3.5-5.0) g/dL Crossmatch Assessment and Plan Plan: 1 GI bleeding, likely of a upper GI source with drop in hemoglobin to 5.8. Previous history of peptic ulcer disease. The patient on a combination of aspirin and Plavix. The patient has been ordered to have 2 units of packed RBC. The rest of the coagulation profile is within normal limits. The patient is hemodynamically stable at this point in time. She is producing adequate amount of urine output. No shortness of breath or chest pain. The patient claims that she has had previous endoscopies. The exact he is not known. The database operator person who did the procedure is not known. We will going to retrieve all this information. We are going to consult GI. Today's evaluation of 03/11/2019, the patient has already received 2 units of packed RBC and hemoglobin is up to 7.8. The patient is awaiting her GI evaluation. She is on clear liquid diet. Hemodynamically stable. 2 coronary artery disease with recent coronary intervention and stenting of the LAD currently on a combination of aspirin and Plavix 3 hypertension 4 blood loss anemia with hemoglobin of 5.8 5 weakness, exertional dyspnea and dizziness secondary to above Plan 1 acute hemoglobin. Awaiting GI consultation. Awaiting any previous records from other facilities where EGD and colonoscopy is done on this patient. That may be shedding some light and giving us and set on her condition. I suspect that she had an upper GI bleed secondary to peptic ulcer disease in the setting of aspirin and Plavix combination. Both of these medications are currently on hold. We'll continue to follow. The patient is stable enough to be transferred to a medical surgical floor with telemetry..
--- NOTE | 2019-03-11 14:01 | P.CONS ---
History of Present Illness - Reason for Consult Consult date: 03/11/19 Anemia and GI bleed Requesting physician: Josh Avila - Chief Complaint Melena anemia - History of Present Illness 83-year-old female past ago history of recent heart catheterization with PCI stent 01/14/2019 maintained on dual antiplatelet therapy Plavix and aspirin, occult GI bleed 2 years ago status post EGD colonoscopy small bowel capsule endoscopy without clear bleeding source. Admitted with a 2 week history of black colored bowel movements with weakness and lightheadedness abnormal outpatient CBC. Admission hemoglobin 5.8. MCV 82. Platelet 220. White count 4.8. INR 0.9. BUN 27. Creatinine 0.6. Denies abdominal pain no episodes of coffee-ground emesis hematemesis or hematochezia. No weight loss or fever. Received 2 units of blood current hemoglobin 7.8. No alcohol or NSAIDs. Last bowel movement this morning was dark brown-like black in color states improved from previous bowel movements. Review of Systems Constitutional: Denies fever, chills, sweats, weight gain, or loss. HEENT: Negative for migraines, blurred vision or loss, earaches, drainage, tinnitus, oral mucosal lesions, dysphagia, or odynophagia. CARDIAC: Negative for chest pain, arrhythmias, or palpitation. RESPIRATORY: Negative for shortness of breath, hemoptysis, cough, or sputum production. GI: See HPI for pertinent findings. : Negative for hematuria, urgency, frequency, polyuria, or dysuria. GYNc: Negative vaginal discharge. MUSCULOSKELETAL: Negative for muscle aches, swelling, arthritis, and arthralgias. NEUROLOGIC: Negative for stroke or TIA. ENDOCRINE: Negative for thyroid problems. SKIN: Negative for rash or itching. PSYCHIATRIC: Negative history for depression and anxiety Past Medical History Past Medical History: Coronary Artery Disease (CAD), GI Bleed, Hypertension Additional Past Medical History / Comment(s): ANEMIA, HIATAL HERNIA, SOB History of Any Multi-Drug Resistant Organisms: None Reported Past Surgical History: Cholecystectomy, Heart Catheterization Additional Past Surgical History / Comment(s): D&C, EGD, COLONOSCOPY Past Anesthesia/Blood Transfusion Reactions: Postoperative Nausea & Vomiting (PONV) Past Psychological History: No Psychological Hx Reported Smoking Status: Former smoker Past Alcohol Use History: None Reported Past Drug Use History: None Reported Medications and Allergies Home Medications Medication Instructions Recorded Confirmed Type Ferrous Sulfate [Iron] 325 mg PO DAILY 09/14/17 03/10/19 History Metoprolol Succinate [Toprol XL] 12.5 mg PO BID 09/14/17 03/10/19 History Aspirin 81 mg PO DAILY #90 chew 12/29/18 03/10/19 Rx Clopidogrel [Plavix] 75 mg PO DAILY #90 tab 12/29/18 03/10/19 Rx Nitroglycerin Sl Tabs [Nitrostat] 0.4 mg SUBLINGUAL Q5M PRN #25 tab 12/29/18 03/10/19 Rx Lisinopril [Zestril] 10 mg PO DAILY 03/10/19 03/10/19 History Pnv,Calcium 72/Iron/Folic Acid 1 tab PO DAILY 03/10/19 03/10/19 History [ Plus Tablet] Allergies Allergy/AdvReac Type Severity Reaction Status Date / Time codeine Allergy Nausea & Verified 03/10/19 14:36 Vomiting Sulfa (Sulfonamide Allergy Unknown Verified 03/10/19 14:36 Antibiotics) Physical Exam Vitals: Vital Signs Temp Pulse Resp BP Pulse Ox 03/11/19 13:00 79 16 137/85 95 03/11/19 12:00 98 F 65 12 136/97 97 03/11/19 11:00 64 20 132/60 94 L 03/11/19 10:00 64 18 119/70 96 03/11/19 09:00 107 H 12 126/62 95 03/11/19 08:00 98.0 F 68 11 L 96/38 96 03/11/19 07:00 59 L 20 122/42 92 L 03/11/19 06:30 69 20 122/42 93 L 03/11/19 06:00 61 17 138/58 93 L 03/11/19 05:30 74 24 138/58 94 L 03/11/19 05:00 70 18 93/36 93 L 03/11/19 04:30 63 20 93/36 92 L 03/11/19 04:00 98 F 63 18 114/58 93 L 03/11/19 03:39 2 L 03/11/19 03:30 54 L 20 114/58 96 03/11/19 03:00 72 15 108/59 96 03/11/19 02:30 73 20 108/59 94 L 03/11/19 02:00 70 18 139/62 96 03/11/19 01:30 67 18 139/62 96 03/11/19 01:00 73 2 L 139/62 96 03/11/19 00:30 76 17 99/42 95 03/11/19 00:00 98.2 F 73 19 128/78 95 03/10/19 23:38 24 03/10/19 23:30 73 22 128/78 96 03/10/19 23:00 76 15 139/60 96 03/10/19 22:30 72 17 139/60 96 03/10/19 22:00 98 F 65 24 127/66 96 03/10/19 21:30 68 18 131/56 99 03/10/19 21:00 66 27 H 124/70 100 03/10/19 20:30 60 24 129/56 99 03/10/19 20:00 98 F 63 23 123/49 98 03/10/19 19:30 62 22 145/84 99 03/10/19 19:16 98 F 70 18 144/52 98 03/10/19 19:00 70 23 128/54 98 03/10/19 18:46 98.1 F 78 18 128/54 100 03/10/19 18:36 98.1 F 67 18 143/63 100 03/10/19 18:32 96.6 F L 71 18 143/63 98 03/10/19 18:30 71 21 134/58 98 03/10/19 18:00 73 23 124/56 96 03/10/19 17:30 90 15 149/50 99 03/10/19 17:00 59 L 18 132/50 100 03/10/19 16:30 70 19 140/36 99 03/10/19 16:20 96.6 F L 03/10/19 16:19 96.6 F L 70 10 L 140/36 98 03/10/19 16:00 96.6 F L 62 15 129/53 100 03/10/19 15:52 97.7 F 62 16 129/53 100 03/10/19 15:23 97.7 F 70 16 139/57 100 03/10/19 15:13 98.1 F 66 16 118/34 100 03/10/19 14:30 124/35 100 Intake and Output 03/10/19 03/11/19 03/11/19 22:59 06:59 14:59 Intake Total 990 420 0 Output Total 250 0 Balance 740 420 0 Intake: IV 60 420 0 Sodium Chloride 0.9% 1, 60 420 0 000 ml @ 60 mls/hr IV . [id number] [facility] Rx#:[id number] Blood Product 930 Rc As-1 Unit 310 [id number] Rc As-1 Unit 310 [id number] Output: Urine 250 0 Other: Voiding Method Bedside Commode Bedside Commode Bedside Commode # Voids 1 1 1 # Bowel Movements 1 Weight 75.4 kg General appearance: The patient is alert, oriented, in no acute distress. HET: Head is normocephalic and atraumatic. Pupils are equal and reactive. Oropharynx is clear without lesions. Neck: Supple without lymphadenopathy. Trachea midline. Heart: S1 S2. Regular rate and rhythm. Lungs: No crackles or wheezes are heard. Abdomen: Soft, nontender, nondistended with bowel sounds. No peritoneal signs. No palpable organomegaly or masses. Extremities: Normal skin color and turgor. No cyanosis, rash, ulceration, clubbing, or edema. Radial and pedal pulses are 2/4 bilaterally. Neurological: No focal deficits. Strength and sensation are grossly intact. Results CBC & Chem 7: 03/11/19 04:34 03/11/19 04:34 Labs: Abnormal Lab Results - Last 24 Hours (Table) 03/10/19 03/10/19 03/10/19 Range/Units 12:58 12:58 12:58 RBC 2.54 L (3.80-5.40) m/uL Hgb 5.8 L* (11.4-16.0) gm/dL Hct 20.9 L (34.0-46.0) % MCH 22.9 L (25.0-35.0) pg MCHC 27.8 L (31.0-37.0) g/dL Lymphocytes # 0.7 L (1.0-4.8) k/uL APTT 18.0 L (22.0-30.0) sec Chloride (98-107) mmol/L Ferritin (10.0-291.0) ng/mL Crossmatch See Detail 03/10/19 03/11/19 03/11/19 Range/Units 16:49 00:05 04:34 RBC 3.32 L 3.24 L (3.80-5.40) m/uL Hgb 8.1 L D 7.8 L (11.4-16.0) gm/dL Hct 27.8 L 26.7 L (34.0-46.0) % MCH 24.5 L 24.1 L (25.0-35.0) pg MCHC 29.3 L 29.2 L (31.0-37.0) g/dL Lymphocytes # 0.8 L (1.0-4.8) k/uL APTT (22.0-30.0) sec Chloride (98-107) mmol/L Ferritin 5.5 L (10.0-291.0) ng/mL Crossmatch 03/11/19 Range/Units 04:34 RBC (3.80-5.40) m/uL Hgb (11.4-16.0) gm/dL Hct (34.0-46.0) % MCH (25.0-35.0) pg MCHC (31.0-37.0) g/dL Lymphocytes # (1.0-4.8) k/uL APTT (22.0-30.0) sec Chloride 112 H (98-107) mmol/L Ferritin (10.0-291.0) ng/mL Crossmatch Assessment and Plan (1) Symptomatic anemia Narrative/Plan: 83-year-old female recent heart catheterization PCI stent December 2018 maintained on dual antiplatelet therapy and a remote history of occult GI bleed status post EGD colonoscopy capsule study 2 years ago without clear source presents with symptomatic normocytic hypochromic anemia component of acute blood loss with melena 2 weeks. Underlying peptic ulcer disease small bowel source cannot be excluded. Current Visit: Yes Status: Acute Code(s): D64.9 - ANEMIA, UNSPECIFIED SNOMED Code(s): 139730595 (2) Acute blood loss anemia Current Visit: Yes Status: Acute Code(s): D62 - ACUTE POSTHEMORRHAGIC ANEMIA SNOMED Code(s): 941482998 (3) Melena Current Visit: Yes Status: Acute Code(s): K92.1 - MELENA SNOMED Code(s): 9055301 (4) History of heart artery stent Current Visit: Yes Status: Acute Code(s): Z95.5 - PRESENCE OF CORONARY ANGIOPLASTY IMPLANT AND GRAFT SNOMED Code(s): 012808579 (5) GI bleed Current Visit: Yes Status: Acute Code(s): K92.2 - GASTROINTESTINAL HEMORRHAGE, UNSPECIFIED SNOMED Code(s): 19052859 Plan: 1. Clear liquids. Nothing by mouth after midnight for diagnostic EGD evaluation tomorrow possible small bowel capsule endoscopy. CBC monitoring. Protonix 40 mg daily. 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 The patient has indicated understanding and acceptance of the risks and procedures discussed. Thank you for this kind referral and the opportunity to participate in the care of your patient. This consultation was discussed with Dr. Cardozo. The impression and plan of care have been directed as dictated.
--- NOTE | 2019-03-11 15:52 | P.CRDCN ---
History of Present Illness Consult date: 03/11/19 History of present illness: This is a 83-year-old female with history of of coronary artery disease, hypertension and also ischemic or disease who had stent placement done in December of this year. At the time. Patient was admitted to the hospital with chest pain and a stress test showed evidence of ischemia in the anterior wall, patient had a stent placement of the left anterior descending coronary artery. Patient has been on Plavix and aspirin. She is admitted now with complaints of fatigue and weakness and was found to have severe anemia which is felt to be secondary to GI bleeding. Patient required blood transfusion. At the time of my examination patient is comfortable. Denies any chest pain or shortness of breath. Patient has had history of GI bleeding in the past and has required blood transfusions. Patient had previous endoscopy examinations and apparently no definite source of bleeding could be established. Patient is seen by GI department and waiting to have further evaluation at this time. Her aspirin and Plavix have been held. Hopefully as soon as patient has her endoscopy examination done, we'll start aspirin at least as soon as possible and add Plavix. Subsequently. Overall her prognosis is guarded. At this point patient is cardiac-schaefer stable Review of Systems As per the chart Past Medical History Past Medical History: Coronary Artery Disease (CAD), GI Bleed, Hypertension Additional Past Medical History / Comment(s): ANEMIA, HIATAL HERNIA, SOB History of Any Multi-Drug Resistant Organisms: None Reported Past Surgical History: Cholecystectomy, Heart Catheterization Additional Past Surgical History / Comment(s): D&C, EGD, COLONOSCOPY Past Anesthesia/Blood Transfusion Reactions: Postoperative Nausea & Vomiting (PONV) Past Psychological History: No Psychological Hx Reported Smoking Status: Former smoker Past Alcohol Use History: None Reported Past Drug Use History: None Reported Medications and Allergies Home Medications Medication Instructions Recorded Confirmed Type Ferrous Sulfate [Iron] 325 mg PO DAILY 09/14/17 03/10/19 History Metoprolol Succinate [Toprol XL] 12.5 mg PO BID 09/14/17 03/10/19 History Aspirin 81 mg PO DAILY #90 chew 12/29/18 03/10/19 Rx Clopidogrel [Plavix] 75 mg PO DAILY #90 tab 12/29/18 03/10/19 Rx Nitroglycerin Sl Tabs [Nitrostat] 0.4 mg SUBLINGUAL Q5M PRN #25 tab 12/29/18 03/10/19 Rx Lisinopril [Zestril] 10 mg PO DAILY 03/10/19 03/10/19 History Pnv,Calcium 72/Iron/Folic Acid 1 tab PO DAILY 03/10/19 03/10/19 History [ Plus Tablet] Allergies Allergy/AdvReac Type Severity Reaction Status Date / Time codeine Allergy Nausea & Verified 03/10/19 14:36 Vomiting Sulfa (Sulfonamide Allergy Unknown Verified 03/10/19 14:36 Antibiotics) Physical Exam Vitals: Vital Signs Temp Pulse Resp BP Pulse Ox 03/11/19 15:00 56 L 12 135/56 94 L 03/11/19 14:00 63 18 142/61 96 03/11/19 13:00 79 16 137/85 95 03/11/19 12:00 98 F 65 12 136/97 97 03/11/19 11:00 64 20 132/60 94 L 03/11/19 10:00 64 18 119/70 96 03/11/19 09:00 107 H 12 126/62 95 03/11/19 08:00 98.0 F 68 11 L 96/38 96 03/11/19 07:00 59 L 20 122/42 92 L 03/11/19 06:30 69 20 122/42 93 L 03/11/19 06:00 61 17 138/58 93 L 03/11/19 05:30 74 24 138/58 94 L 03/11/19 05:00 70 18 93/36 93 L 03/11/19 04:30 63 20 93/36 92 L 03/11/19 04:00 98 F 63 18 114/58 93 L 03/11/19 03:39 2 L 03/11/19 03:30 54 L 20 114/58 96 03/11/19 03:00 72 15 108/59 96 03/11/19 02:30 73 20 108/59 94 L 03/11/19 02:00 70 18 139/62 96 03/11/19 01:30 67 18 139/62 96 03/11/19 01:00 73 2 L 139/62 96 03/11/19 00:30 76 17 99/42 95 03/11/19 00:00 98.2 F 73 19 128/78 95 03/10/19 23:38 24 03/10/19 23:30 73 22 128/78 96 06/13/19 23:00 76 15 139/60 96 03/10/19 22:30 72 17 139/60 96 03/10/19 22:00 98 F 65 24 127/66 96 03/10/19 21:30 68 18 131/56 99 03/10/19 21:00 66 27 H 124/70 100 03/10/19 20:30 60 24 129/56 99 03/10/19 20:00 98 F 63 23 123/49 98 03/10/19 19:30 62 22 145/84 99 03/10/19 19:16 98 F 70 18 144/52 98 03/10/19 19:00 70 23 128/54 98 03/10/19 18:46 98.1 F 78 18 128/54 100 03/10/19 18:36 98.1 F 67 18 143/63 100 03/10/19 18:32 96.6 F L 71 18 143/63 98 03/10/19 18:30 71 21 134/58 98 03/10/19 18:00 73 23 124/56 96 03/10/19 17:30 90 15 149/50 99 03/10/19 17:00 59 L 18 132/50 100 03/10/19 16:30 70 19 140/36 99 03/10/19 16:20 96.6 F L 03/10/19 16:19 96.6 F L 70 10 L 140/36 98 03/10/19 16:00 96.6 F L 62 15 129/53 100 03/10/19 15:52 97.7 F 62 16 129/53 100 Intake and Output 03/11/19 03/11/19 03/11/19 06:59 14:59 22:59 Intake Total 420 0 Output Total 0 Balance 420 0 Intake: IV 420 0 Sodium Chloride 0.9% 1, 420 0 000 ml @ 60 mls/hr IV . [id number] [facility] Rx#:[id number] Output: Urine 0 Other: Voiding Method Bedside Commode Bedside Commode # Voids 1 1 # Bowel Movements 1 Weight 75.4 kg GENERAL EXAM: Patient is alert and oriented and doesn't appear to be in any acute distress HEENT: Normocephalic. Normal reaction of pupils, equal size, normal range of extraocular motion. No erythema or exudates in the throat. NECK: No masses, no nuchal rigidity. CHEST: No chest wall deformity. LUNGS: Equal air entry with no crackles or wheeze. HEART: S1 and S2 normal with no audible mumurs or gallops. Regular rhythm, femorals equal on both sides.. ABDOMEN: No hepatosplenomegaly, normal bowel sounds, no guarding or rigidity. SKIN: No rashes CENTRAL NERVOUS SYSTEM: No focal deficits. EXTREMITIES: No cyanosis, clubbing or edema. Results 03/11/19 04:34 03/11/19 04:34 CBC 03/11/19 03/11/19 Range/Units 00:05 04:34 WBC 4.2 4.0 (3.8-10.6) k/uL RBC 3.32 L 3.24 L (3.80-5.40) m/uL Hgb 8.1 L D 7.8 L (11.4-16.0) gm/dL Hct 27.8 L 26.7 L (34.0-46.0) % Plt Count 179 191 (150-450) k/uL Comprehensive Metabolic Panel 03/11/19 Range/Units 04:34 Sodium 138 (137-145) mmol/L Potassium 4.0 (3.5-5.1) mmol/L Chloride 112 H (98-107) mmol/L Carbon Dioxide 24 (22-30) mmol/L BUN 17 (7-17) mg/dL Creatinine 0.58 (0.52-1.04) mg/dL Glucose 85 (74-99) mg/dL Calcium 8.8 (8.4-10.2) mg/dL Current Medications Generic Name Dose Route Start Last Admin Trade Name Freq PRN Reason Stop Dose Admin Aspirin 81 mg 03/12/19 09:00 Aspirin PO DAILY JEANNE Sodium Chloride 1,000 mls @ 60 mls/hr 03/10/19 16:45 03/11/19 08:46 Saline 0.9% IV 60 mls/hr .[id number] JEANNE Administration Magnesium Citrate 296 ml 03/11/19 17:00 Citrate Of Magnesia PO 03/11/19 17:01 ONCE ONE Metoprolol Tartrate 12.5 mg 03/11/19 09:00 03/11/19 08:46 Lopressor PO 12.5 mg BID JEANNE Administration Naloxone HCl 0.2 mg 03/10/19 14:14 Narcan IV Q2M PRN Opioid Reversal Ondansetron HCl 4 mg 03/10/19 16:48 Zofran IVP Q6HR PRN Nausea And Vomiting Pantoprazole Sodium 40 mg 03/11/19 09:00 03/11/19 08:46 Protonix IV 40 mg DAILY JEANNE Administration Intake and Output 03/11/19 03/11/19 03/11/19 06:59 14:59 22:59 Intake Total 420 0 Output Total 0 Balance 420 0 Intake: IV 420 0 Sodium Chloride 0.9% 1, 420 0 000 ml @ 60 mls/hr IV . [id number] JEANNE Rx#:[id number] Output: Urine 0 Other: Voiding Method Bedside Commode Bedside Commode # Voids 1 1 # Bowel Movements 1 Weight 75.4 kg 03/11/19 04:34 03/11/19 04:34 EKG Interpretations (text) Sinus rhythm with evidence of right bundle-branch block, incomplete Assessment and Plan (1) Acute blood loss anemia Current Visit: Yes Status: Acute Code(s): D62 - ACUTE POSTHEMORRHAGIC ANEMIA SNOMED Code(s): 051319927 (2) Coronary artery disease Current Visit: Yes Status: Acute Code(s): I25.10 - ATHSCL HEART DISEASE OF [place] CORONARY ARTERY W/O ANG PCTRS SNOMED Code(s): 01582855 (3) Essential hypertension Current Visit: Yes Status: Acute Code(s): I10 - ESSENTIAL (PRIMARY) HYPERTENSION SNOMED Code(s): 03077432 (4) History of heart artery stent Current Visit: Yes Status: Acute Code(s): Z95.5 - PRESENCE OF CORONARY ANGIOPLASTY IMPLANT AND GRAFT SNOMED Code(s): 730615422 Plan: At this point patient is a cardiacwise stable. Waiting to have endoscopy evaluation. Aspirin and Plavix have been held. We'll resume antiplatelet agent when cleared by gastroenterology.
[2019-03-11] MEDS ORDERED: MAGNESIUM CITRATE 296 ML BOTTLE PO ONE (17:00)
[2019-03-12] MEDS: SODIUM CHLORIDE 0.9% 1,000 ML IV SCH (02:59)
[2019-03-12 06:35] VITALS: RESP 18
[2019-03-12] MEDS ORDERED: LACTATED RINGERS 1,000 ML IV ONE (07:57)
[2019-03-12] MEDS ORDERED: LIDOCAINE 1% INJ 10MG/ML (20 ML MDV) ONE (07:57)
[2019-03-12] MEDS ORDERED: PROPOFOL 10 MG/ML 20 ML VIAL IV ONE (07:57)
[2019-03-12] MEDS ORDERED: fentaNYL (PF) 50 MCG/ML 2 ML AMP ONE (07:57)
--- NOTE | 2019-03-12 08:45 | P.PCN ---
Date of Procedure: 03/12/19 Procedure(s) Performed: Procedure: Esophagogastroduodenoscopy and biopsy. Preoperative diagnosis: Profound anemia and dark stools, R/O PUD. Postoperative diagnosis: 1. Moderately sized hiatal hernia with gastritis and duodenitis but no active bleeding at the time of this exam. 2. Biopsies obtained from the antrum to rule out H. pylori infection. Preparation and sedation: Was provided by anesthesia. Brief clinical history: The patient is an 83-year-old female with past history of recent heart catheterization with PCI stent 01/14/2019 maintained on dual antiplatelet therapy Plavix and aspirin, occult GI bleed 2 years ago status post EGD, colonoscopy and small bowel capsule endoscopy without clear bleeding source. Admitted with a 2 week history of black colored bowel movements with weakness and lightheadedness abnormal outpatient CBC. Admission hemoglobin 5.8. MCV 82. Platelet 220. White count 4.8. INR 0.9. BUN 27. Creatinine 0.6. Denies abdominal pain. No episodes of coffee-ground emesis, hematemesis or hematochezia. No weight loss or fever. Received 2 units of blood current hem oglobin 7.8. No alcohol or NSAIDs. Last bowel movement was dark brown-like black in color states improved from previous bowel movements. Other details are summarized in the history and physical and dictated consultation and progress notes. This evaluation is to assess for a source of upper GI bleeding. Procedure: With the patient on her left lateral decubitus position and after informed consent and adequate sedation, I passed the Olympus-GIF H190 video upper endoscope through the cricopharyngeus down the esophagus. There was a moderately sized hiatal hernia starting at around 35 cm from the incisors but no obvious esophagitis or complicated reflux disease. No varices, mucosal tears or bleeding. The endoscope was then passed into the rest of the stomach which was inspected in detail including the retroflex view in the cardia. There was multiple erosions and superficial ulcerations in the antrum and at the diaphragmatic impression in the body which could be potential sources of bl eeding but they were not bleeding or showing any stigmata of recent bleeding. The hiatal hernia was around 5 cm in total size. Pyloric channel did not show any ulcers. Duodenal bulb post bulbar area and descending duodenum showed mottling and erythema but no definite ulcer or erosions. No bleeding. I obtained biopsies from the antrum to rule out H. pylori infection then the endoscope was withdrawn. The patient tolerated the procedure well. Plan: The patient was reassured. We will not proceed with capsule endoscopy today because of the findings in the stomach and duodenum which could pot entially explain her symptoms especially in light of her dual antiplatelet therapy. We will monitor closely and keep capsule as a contingency based on her course.
[2019-03-12] MEDS ORDERED: ASPIRIN 81 MG PO SCH (09:00)
[2019-03-12] MEDS: PANTOPRAZOLE 40 MG/10 ML VIAL IV SCH (09:12)
[2019-03-12] MEDS: METOPROLOL TARTRATE 12.5 MG TAB PO SCH (09:12)
[2019-03-12 09:13] LABS: African American GFR (CKD) >90 (>60 ml/min/1.73 sqM); Blood Urea Nitrogen 12 mg/dL (7-17); Calcium 8.9 mg/dL (8.4-10.2); Chloride 112 mmol/L (98-107); Glucose 98 mg/dL (74-99); Magnesium 2.3 mg/dL (1.6-2.3); Phosphorus 3.5 mg/dL (2.5-4.5); Potassium 4.1 mmol/L (3.5-5.1); Sodium 141 mmol/L (137-145)
[2019-03-12 09:16] LABS: Basophils % (A) 1 %; Eosinophils # (A) 0.1 k/uL (0-0.7); Eosinophils % (A) 2 %; HCT 29.3 % (34.0-46.0); HGB 8.5 gm/dL (11.4-16.0); Hypochromasia Marked; Lymphocytes # (A) 0.6 k/uL (1.0-4.8); Lymphocytes % (A) 20 %; MCH 24.2 pg (25.0-35.0); MCHC 29.1 g/dL (31.0-37.0); MCV 83.2 fL (80.0-100.0); Mean Platelet Volume 8.2; Monocytes # (A) 0.3 k/uL (0-1.0); Monocytes % (A) 9 %; Neutrophils % (A) 65 %; Platelet Count 198 k/uL (150-450); Poikilocytosis Marked; RBC 3.53 m/uL (3.80-5.40); RDW 15.6 % (11.5-15.5)
[2019-03-12 09:25] LABS: Anion Gap 5 mmol/L; Carbon Dioxide 24 mmol/L (22-30)
[2019-03-12 13:25] VITALS: BP 145/70; PULSE 67; TEMP 99
--- NOTE | 2019-03-12 14:49 | P.DS ---
Providers Date of admission: 03/10/19 14:14 Expected date of discharge: 03/12/19 Attending physician: Bita Urban MD Consults: 03/10/19 14:14 Consult Physician Urgent Consulting Provider: Kellie Trujillo Consult Reason/Comments: Critical care management Do you want consulting provider notified?: Yes Consult Physician Urgent Consulting Provider: Thang Danielle Consult Reason/Comments: GI bleed Do you want consulting provider notified?: Yes 03/10/19 16:35 Consult Physician Routine Consulting Provider: Antony Starks Consult Reason/Comments: recent LAD stent on plavix in GI bleed Do you want consulting provider notified?: Yes Primary care physician: Jose Shetty - Discharge Diagnosis(es) (1) GI bleed Current Visit: Yes Status: Acute (2) Normocytic anemia due to blood loss Current Visit: Yes Status: Acute (3) Essential hypertension Current Visit: Yes Status: Acute (4) Coronary artery disease Current Visit: Yes Status: Acute (5) Presence of stent in coronary artery in patient with coronary artery disease Current Visit: Yes Status: Acute (6) Gastritis and duodenitis Current Visit: Yes Status: Acute Hospital Course: The patient is a 83-year-old female with a recent history of recent heart catheterization with PCI stenting of the proximal LAD 01/14 that was currently dual antiplatelet therapy with Plavix and aspirin that presented with weakness fatigue and complaints of dark starry stools and was admitted with concern for upper GI bleed after presenting with a hemoglobin of 5.8. She was typed and crossed transfused 2 units of packed RBCs with her hemoglobin rising to 8.5. Her Plavix and aspirin were held, GI and cardiology were consulted, the patient was made NPO and was continued on fluids and supportive therapy with antiemetics and PPI therapy. EGD performed showed a moderate hiatal hernia and duodenitis and gastritis with no suggestion of active bleed. The patient's diet was advanced and she was tolerating a low fiber diet well and was subsequently discharged home in stable condition on Pepcid with plans for follow-up in GI clinic in 1 week. This discharge process took approximately 35 minutes Focus exam GI: Soft nontender nondistended normoactive bowel sounds all 4 quadrants Patient Condition at Discharge: Good Plan - Discharge Summary Discharge Rx Participant: Yes New Discharge Prescriptions: New Famotidine [Pepcid] 40 mg PO HS #30 tablet Continue Metoprolol Succinate [Toprol XL] 12.5 mg PO BID Ferrous Sulfate [Iron] 325 mg PO DAILY Aspirin 81 mg PO DAILY #90 chew Nitroglycerin Sl Tabs [Nitrostat] 0.4 mg SUBLINGUAL Q5M PRN #25 tab PRN Reason: Chest Pain Clopidogrel [Plavix] 75 mg PO DAILY #90 tab Pnv,Calcium 72/Iron/Folic Acid [ Plus Tablet] 1 tab PO DAILY Lisinopril [Zestril] 10 mg PO DAILY Discharge Medication List Ferrous Sulfate [Iron] 325 mg PO DAILY 09/14/17 [History] Metoprolol Succinate [Toprol XL] 12.5 mg PO BID 09/14/17 [History] Aspirin 81 mg PO DAILY #90 chew 12/29/18 [Rx] Clopidogrel [Plavix] 75 mg PO DAILY #90 tab 12/29/18 [Rx] Nitroglycerin Sl Tabs [Nitrostat] 0.4 mg SUBLINGUAL Q5M PRN #25 tab 12/29/18 [Rx] Lisinopril [Zestril] 10 mg PO DAILY 03/10/19 [History] Pnv,Calcium 72/Iron/Folic Acid [ Plus Tablet] 1 tab PO DAILY 03/10/19 [History] Famotidine [Pepcid] 40 mg PO HS #30 tablet 03/12/19 [Rx] Follow up Appointment(s)/Referral(s): Thang Danielle MD [STAFF PHYSICIAN] - 1 Week (Unable to make appointment secondary to weekend discharge. ) Jose Shetty MD [Primary Care Provider] - 1-2 days (Patient to make self appointment. Weekend discharge) Patient Instructions/Handouts: Gastrointestinal Bleeding (DC) Activity/Diet/Wound Care/Special Instructions: RESUME PLAVIX AND ASPIRIN tomorrow 06/13/19 Discharge Disposition: HOME SELF-CARE
== END 2019-03-12 15:23 | disposition home or self-care (01) | DRG 378 ==
LOC: EC 10:43 → 2SICU 14:14 → 4MS4W 03-11 15:09
PROVIDERS: ADMIT Internal Medicine; ATTEND Internal Medicine
PROC: 0DB78ZX Excision of Stomach, Pylorus, Via Natural or Artificial Opening Endoscopic, Diagnostic (ICD-10-PCS; principal; 2019-03-10)
PROC: 30233N1 Transfusion of Nonautologous Red Blood Cells into Peripheral Vein, Percutaneous Approach (ICD-10-PCS; 2019-03-10)
DX: K92.2 Gastrointestinal hemorrhage, unspecified (principal); D62 Acute posthemorrhagic anemia; K29.80 Duodenitis without bleeding; K29.70 Gastritis, unspecified, without bleeding; E78.5 Hyperlipidemia, unspecified; I10 Essential (primary) hypertension; I25.10 Atherosclerotic heart disease of native coronary artery without angina pectoris; I49.3 Ventricular premature depolarization; K44.9 Diaphragmatic hernia without obstruction or gangrene; K59.00 Constipation, unspecified; Z79.02 Long term (current) use of antithrombotics/antiplatelets; Z79.82 Long term (current) use of aspirin; Z79.899 Other long term (current) drug therapy; Z87.891 Personal history of nicotine dependence; Z95.5 Presence of coronary angioplasty implant and graft; Z88.5 Allergy status to narcotic agent; Z88.2 Allergy status to sulfonamides; Z87.11 Personal history of peptic ulcer disease
CPT/HCPCS: 36415; 43239; 80048; 80053; 82728; 83540; 83550; 83735; 84100; 84484; 85025; 85027; 85610; 85730; 86850; 86900; 86901; 86920; 88305; 93005; 96361; 96374; 99285

== ENCOUNTER → 2019-05-24 | Outpatient (CLI) | payer MEDICARE ==
--- NOTE | 2019-05-26 08:51 | MM ---
Reason for exam: screening (asymptomatic). Last mammogram was performed 1 year ago. History: Patient is postmenopausal. Family history of breast cancer in sister at age 74. Took estrogen for 2 years beginning at age 59. Took progesterone for 2 years beginning at age 59. Physical Findings: A clinical breast exam by your physician is recommended on an annual basis and results should be correlated with mammographic findings. MG 3D Screening Mammo W/Cad Bilateral CC and MLO view(s) were taken. Prior study comparison: May 10, 2018, bilateral MG 3d diag mammo w/cad [facility]. April 07, 2017, mammogram, performed at [facility]. October 07, 2016, mammogram, performed at [facility]. September 16, 2016, mammogram, performed at [facility]. There are scattered fibroglandular densities. Focal asymmetry right calcifications. This finding is changed when compared with previous exams. ASSESSMENT: Incomplete: need additional imaging evaluation, BI-RAD 0 RECOMMENDATION: Special view mammogram of the right breast. If lesion persists on supplemental views, image directed ultrasound is recommended. [facility] will attempt to contact patient to return for supplemental views and ultrasound if indicated.
== END | disposition home or self-care (01) ==
LOC: RADMAMWWP 12:59
PROVIDERS: ATTEND Internal Medicine
DX: Z12.31 Encounter for screening mammogram for malignant neoplasm of breast (principal)
CPT/HCPCS: 77063; 77067

== ENCOUNTER → 2019-06-09 | Outpatient (CLI) | payer MEDICARE ==
--- NOTE | 2019-06-09 14:32 | MM ---
Reason for exam: additional evaluation requested from abnormal screening. Last mammogram was performed 1 month ago. History: Patient is postmenopausal. Family history of breast cancer in sister at age 74. Benign excisional biopsy of the right breast, 1998. Took estrogen for 2 years beginning at age 59. Took progesterone for 2 years beginning at age 59. Physical Findings: Nurse did not find any significant physical abnormalities on exam. MG 3D Work Up W/Cad RT CC with magnification, LM with magnification, LM, CCRM, and CCRL view(s) were taken of the right breast. Prior study comparison: May 10, 2018, bilateral MG 3d diag mammo w/cad RANDY. September 16, 2016, mammogram, performed at [facility]. The breast tissue is heterogeneously dense. This may lower the sensitivity of mammography. Finding: There are typically benign regional calcifications in the central position of the right breast. Asymmetric breast tissue. Right breast unchanged from 2016. No distinct new lesion on additional views. These results were verbally communicated with the patient and result sheet given to the patient on 06/09/19. ASSESSMENT: Benign, BI-RAD 2 RECOMMENDATION: Return to routine screening mammogram schedule for both breasts.
== END | disposition home or self-care (01) ==
LOC: RADMAMWWP 12:58
PROVIDERS: ATTEND Internal Medicine
DX: R92.8 Other abnormal and inconclusive findings on diagnostic imaging of breast (principal)
CPT/HCPCS: 77065; G0279; 77061

== ENCOUNTER → 2020-12-10 | Outpatient (CLI) | payer MEDICARE ==
--- NOTE | 2020-12-12 11:59 | MM ---
Reason for exam: screening (asymptomatic). Last mammogram was performed 1 year and 6 months ago. History: Patient is postmenopausal. Family history of breast cancer in sister at age 74. Benign excisional biopsy of the right breast, 1998. Took estrogen for 2 years beginning at age 59. Took progesterone for 2 years beginning at age 59. Physical Findings: A clinical breast exam by your physician is recommended on an annual basis and results should be correlated with mammographic findings. MG 3D Screening Mammo W/Cad Bilateral CC and MLO view(s) were taken. Prior study comparison: June 09, 2019, right breast MG 3d work up w/cad RT. May 24, 2019, bilateral MG 3d screening mammo w/cad. There are scattered fibroglandular densities. There are benign appearing vascular calcifications bilaterally. There is chronic nodularity in the left breast. No significant changes when compared with prior studies. ASSESSMENT: Benign, BI-RAD 2 RECOMMENDATION: Routine screening mammogram of both breasts in 1 year.
== END ==
LOC: RADMAMWWP 14:05
PROVIDERS: ATTEND Family Medicine
DX: Z12.31 Encounter for screening mammogram for malignant neoplasm of breast (principal); Z80.3 Family history of malignant neoplasm of breast
CPT/HCPCS: 77063; 77067

== ENCOUNTER → 2022-02-05 | Outpatient (CLI) | payer MEDICARE ==
--- NOTE | 2022-02-07 11:55 | MM ---
Reason for exam: screening (asymptomatic). Last mammogram was performed 1 year and 2 months ago. History: Patient is postmenopausal. Family history of breast cancer in sister at age 74. Benign excisional biopsy of the right breast, 1998. Took estrogen for 2 years beginning at age 59. Took progesterone for 2 years beginning at age 59. Physical Findings: A clinical breast exam by your physician is recommended on an annual basis and results should be correlated with mammographic findings. MG 3D Screening Mammo W/Cad Bilateral CC and MLO view(s) were taken. Prior study comparison: December 10, 2020, bilateral MG 3d screening mammo w/cad. June 09, 2019, right breast MG 3d work up w/cad RT. There are scattered fibroglandular densities. Previous mammotome biopsy in the right breast. There is chronic nodularity in the left breast. Benign bilateral vascular calcifications. No significant changes when compared with prior studies. ASSESSMENT: Benign, BI-RAD 2 RECOMMENDATION: Routine screening mammogram of both breasts in 1 year.
== END | disposition home or self-care (01) ==
LOC: RADMAMWWP 13:01
PROVIDERS: ATTEND Internal Medicine
DX: Z12.31 Encounter for screening mammogram for malignant neoplasm of breast (principal); Z78.0 Asymptomatic menopausal state; Z80.3 Family history of malignant neoplasm of breast
CPT/HCPCS: 77063; 77067

== ENCOUNTER → 2022-04-09 | Outpatient (CLI) | payer MEDICARE ==
[2022-04-09 18:31] LABS: Basophils # (A) 0.03 X 10*3/uL (0.00-0.10); Basophils % (A) 0.6 %; Eosinophils # (A) 0.12 X 10*3/uL (0.04-0.35); Eosinophils % (A) 2.3 %; HCT 39.6 % (37.2-46.3); HGB 11.9 g/dL (12.0-15.0); Immature Grans, Automated 0.4 %; Lymphocytes # (A) 0.85 X 10*3/uL (0.90-5.00); Lymphocytes % (A) 16.6 %; MCH 29.7 pg (27.0-32.0); MCHC 30.1 g/dL (32.0-37.0); MCV 98.8 fL (80.0-97.0); Mean Platelet Volume 11.7 fL (9.5-12.2); Monocytes # (A) 0.64 X 10*3/uL (0.20-1.00); Monocytes % (A) 12.5 %; NRBC Per 100 WBC 0 /100 WBCS (0.0-0.0); Neutrophils # (A) 3.46 X 10*3/uL (1.80-7.70); Neutrophils % (A) 67.6 %; Platelet Count 196 X 10*3/uL (140-440); RBC 4.01 X 10*6/uL (4.10-5.20); RDW 13.5 % (11.5-14.5); WBC 5.12 X 10*3/uL (4.50-10.00)
== END | disposition home or self-care (01) ==
LOC: LABPAT 12:31
PROVIDERS: ATTEND Obstetrics & Gynecology Obstetrics
DX: Z01.818 Encounter for other preprocedural examination (principal); I44.7 Left bundle-branch block, unspecified; N90.0 Mild vulvar dysplasia; R94.31 Abnormal electrocardiogram [ECG] [EKG]; R00.1 Bradycardia, unspecified
CPT/HCPCS: 85025; 93005

== ENCOUNTER 2022-04-16 13:26 | Observation (INO) | payer MEDICARE ==
[2022-04-16] MEDS ORDERED: SODIUM CHLORIDE 0.9% 500 ML 500 ML IV STA (14:14)
--- NOTE | 2022-04-16 14:26 | ED ---
General Adult HPI - General Chief complaint: Weakness Stated complaint: Weakness Time Seen by Provider: 04/16/22 13:40 Source: patient, RN notes reviewed, old records reviewed Mode of arrival: ambulatory Limitations: no limitations - History of Present Illness Initial comments: This is a 86-year-old female presents emergency Department complaining that she is getting weaker over the last few days and she's having black stools. Patient states she has a history of black stools in the past and having to get blood transfusions. Daughter states the patient is looking much more pale today. Patient denies any abdominal pain. Patient denies chest pain difficult breathing shortness of breath. Patient denies any recent fever chills or cough. Patient denies any nausea or vomiting. Patient has noted a little bit of swelling to the legs. - Related Data Home Medications Medication Instructions Recorded Confirmed Ascorbic Acid [Vitamin C] 1,000 mg PO HS 04/16/22 04/16/22 Aspirin EC [Ecotrin Low Dose] 81 mg PO HS 04/16/22 04/16/22 Atorvastatin [Lipitor] 20 mg PO DAILY 04/16/22 04/16/22 Beetroot 1 tab PO DAILY 04/16/22 04/16/22 Cholecalciferol [Vitamin D3 (25 50 mcg PO DAILY 04/16/22 04/16/22 Mcg = 1000 Iu)] Elisha 500 mg PO DAILY 04/16/22 04/16/22 Latanoprost/Pf [Latanoprost 0.005% 1 drop BOTH EYES HS 04/16/22 04/16/22 Eye Drop] Losartan [Cozaar] 50 mg PO DAILY 04/16/22 04/16/22 Metoprolol Tartrate [Lopressor] 12.5 mg PO HS 04/16/22 04/16/22 Metoprolol Tartrate [Lopressor] 25 mg PO DAILY 04/16/22 04/16/22 Omeprazole 20 mg PO HS 04/16/22 04/16/22 Ubidecarenone [Coenzyme Q10] 200 mg PO DAILY 04/16/22 04/16/22 Allergies Allergy/AdvReac Type Severity Reaction Status Date / Time Sulfa (Sulfonamide Allergy Unknown Verified 04/16/22 15:33 Antibiotics) codeine AdvReac Nausea & Verified 04/16/22 15:33 Vomiting Review of Systems ROS Statement: Those systems with pertinent positive or pertinent negative responses have been documented in the HPI. ROS Other: All systems not noted in ROS Statement are negative. Past Medical History Past Medical History: Coronary Artery Disease (CAD), GI Bleed, Hypertension Additional Past Medical History / Comment(s): ANEMIA, HIATAL HERNIA, SOB History of Any Multi-Drug Resistant Organisms: None Reported Past Surgical History: Cholecystectomy, Heart Catheterization Additional Past Surgical History / Comment(s): D&C, EGD, COLONOSCOPY Past Anesthesia/Blood Transfusion Reactions: Postoperative Nausea & Vomiting (PONV) Past Psychological History: No Psychological Hx Reported Smoking Status: Never smoker Past Alcohol Use History: None Reported Past Drug Use History: None Reported General Exam - General Exam Comments Initial Comments: GENERAL: Patient is well-developed and well-nourished. Patient is nontoxic and well- hydrated and is in mild distress. ENT: Neck is soft and supple. No significant lymphadenopathy is noted. Oropharynx is clear. Moist mucous membranes. Neck has full range of motion without eliciting any pain. EYES: The sclera were anicteric and conjunctiva were pink and moist. Extraocular movements were intact and pupils were equal round and reactive to light. Eyelids were unremarkable. PULMONARY: Unlabored respirations. Good breath sounds bilaterally. No audible rales rhonchi or wheezing was noted. CARDIOVASCULAR: Patient is a regular rate and rhythm no murmurs are heard ABDOMEN: Patient's skin is very pale. SKIN: Skin is clear with no lesions or rashes and otherwise unremarkable. NEUROLOGIC: Patient is alert and oriented x3. Cranial nerves II through XII are grossly intact. Motor and sensory are also intact. Normal speech, volume and content. Symmetrical smile. MUSCULOSKELETAL: Normal extremities with adequate strength and full range of motion. LYMPHATICS: No significant lymphadenopathy is noted PSYCHIATRIC: Normal psychiatric evaluation. Limitations: no limitations Course Vital Signs 04/16/22 13:33 Temperature 98 F Pulse Rate 78 Respiratory 20 Rate Blood Pressure 137/73 O2 Sat by Pulse 98 Oximetry Medical Decision Making - Medical Decision Making EKG shows sinus rhythm at 70 bpm NE interval 250 QRS is under 24 Q-T intervals 414 QTC is 434. Patient's EKG shows no ST segment elevation I spoke with sounds physician's agreed to admit the patient admitted the patient I wrote admitting orders. I will consult Dr. Moore I will have CBCs repeated as an inpatient. - Lab Data Result diagrams: 04/16/22 14:18 04/16/22 14:18 Lab Results 04/16/22 04/16/22 04/16/22 Range/Units 14:10 14:18 14:18 WBC 7.4 (3.8-10.6) k/uL RBC 2.86 L (3.80-5.40) m/uL Hgb 8.9 L (11.4-16.0) gm/dL Hct 28.4 L (34.0-46.0) % MCV 99.2 (80.0-100.0) fL MCH 31.0 (25.0-35.0) pg MCHC 31.3 (31.0-37.0) g/dL RDW 13.5 (11.5-15.5) % Plt Count 213 (150-450) k/uL MPV 8.2 Neutrophils % 78 % Lymphocytes % 14 % Monocytes % 5 % Eosinophils % 1 % Basophils % 0 % Neutrophils # 5.8 (1.3-7.7) k/uL Lymphocytes # 1.1 (1.0-4.8) k/uL Monocytes # 0.4 (0-1.0) k/uL Eosinophils # 0.1 (0-0.7) k/uL Basophils # 0.0 (0-0.2) k/uL Hypochromasia Moderate PT (9.0-12.0) sec INR (<1.2) APTT (22.0-30.0) sec Sodium (137-145) mmol/L Potassium (3.5-5.1) mmol/L Chloride (98-107) mmol/L Carbon Dioxide (22-30) mmol/L Anion Gap mmol/L BUN (7-17) mg/dL Creatinine (0.52-1.04) mg/dL Est GFR (CKD-EPI)AfAm (>60 ml/min/1.73 sqM) Est GFR (CKD-EPI)NonAf (>60 ml/min/1.73 sqM) Glucose (74-99) mg/dL Calcium (8.4-10.2) mg/dL Magnesium (1.6-2.3) mg/dL Total Bilirubin (0.2-1.3) mg/dL AST (14-36) U/L ALT (4-34) U/L Alkaline Phosphatase (38-126) U/L Troponin I (0.000-0.034) ng/mL Total Protein (6.3-8.2) g/dL Albumin (3.5-5.0) g/dL Stool Occult Blood Positive H (Negative) Blood Type A Positive Blood Type Recheck A Pos Bld Type Recheck Status No Antibody Screen NEGATIVE Spec Expiration Date 04/19/2022 - 230904/16/22 04/16/22 04/16/22 Range/Units 14:18 14:18 14:18 WBC (3.8-10.6) k/uL RBC (3.80-5.40) m/uL Hgb (11.4-16.0) gm/dL Hct (34.0-46.0) % MCV (80.0-100.0) fL MCH (25.0-35.0) pg MCHC (31.0-37.0) g/dL RDW (11.5-15.5) % Plt Count (150-450) k/uL MPV Neutrophils % % Lymphocytes % % Monocytes % % Eosinophils % % Basophils % % Neutrophils # (1.3-7.7) k/uL Lymphocytes # (1.0-4.8) k/uL Monocytes # (0-1.0) k/uL Eosinophils # (0-0.7) k/uL Basophils # (0-0.2) k/uL Hypochromasia PT 10.3 (9.0-12.0) sec INR 0.9 (<1.2) APTT 17.5 L (22.0-30.0) sec Sodium 138 (137-145) mmol/L Potassium 3.9 (3.5-5.1) mmol/L Chloride 111 H (98-107) mmol/L Carbon Dioxide 21 L (22-30) mmol/L Anion Gap 6 mmol/L BUN 47 H (7-17) mg/dL Creatinine 0.73 (0.52-1.04) mg/dL Est GFR (CKD-EPI)AfAm 86 (>60 ml/min/1.73 sqM) Est GFR (CKD-EPI)NonAf 75 (>60 ml/min/1.73 sqM) Glucose 104 H (74-99) mg/dL Calcium 9.1 (8.4-10.2) mg/dL Magnesium 2.0 (1.6-2.3) mg/dL Total Bilirubin 0.2 (0.2-1.3) mg/dL AST 33 (14-36) U/L ALT 23 (4-34) U/L Alkaline Phosphatase 54 (38-126) U/L Troponin I <0.012 (0.000-0.034) ng/mL Total Protein 5.6 L (6.3-8.2) g/dL Albumin 3.1 L (3.5-5.0) g/dL Stool Occult Blood (Negative) Blood Type Blood Type Recheck Bld Type Recheck Status Antibody Screen Spec Expiration Date Disposition Clinical Impression: GI bleed, Anemia Disposition: ADMITTED IP TO THIS [facility] Referrals: Blaise Patel MD [Primary Care Provider] - 1-2 days Time of Disposition: 15:57
[2022-04-16 14:58] LABS: Basophils % (A) 0 %; Eosinophils # (A) 0.1 k/uL (0-0.7); Eosinophils % (A) 1 %; HCT 28.4 % (34.0-46.0); HGB 8.9 gm/dL (11.4-16.0); Hypochromasia Moderate; Lymphocytes # (A) 1.1 k/uL (1.0-4.8); Lymphocytes % (A) 14 %; MCHC 31.3 g/dL (31.0-37.0); MCV 99.2 fL (80.0-100.0); Mean Platelet Volume 8.2; Monocytes # (A) 0.4 k/uL (0-1.0); Monocytes % (A) 5 %; Neutrophils # (A) 5.8 k/uL (1.3-7.7); Neutrophils % (A) 78 %; Platelet Count 213 k/uL (150-450); RBC 2.86 m/uL (3.80-5.40); RDW 13.5 % (11.5-15.5); WBC 7.4 k/uL (3.8-10.6)
[2022-04-16 15:07] LABS: Albumin 3.1 g/dL (3.5-5.0); Calcium 9.1 mg/dL (8.4-10.2); Potassium 3.9 mmol/L (3.5-5.1); Total Bilirubin 0.2 mg/dL (0.2-1.3); Total Protein 5.6 g/dL (6.3-8.2)
[2022-04-16 15:20] LABS: INR 0.9 (<1.2); Prothrombin Time 10.3 sec (9.0-12.0)
[2022-04-16 15:29] LABS: Partial Thromboplastin Time 17.5 sec (22.0-30.0)
[2022-04-16] MEDS ORDERED: SODIUM CHLORIDE 0.9% 1,000 ML IV ONE (15:59)
--- NOTE | 2022-04-16 17:18 | P.HPIM ---
History of Present Illness H&P Date: 04/16/22 Chief Complaint: Melena This is an 86-year-old white female who reported to the hospital with melena. Symptoms started a few days ago. She also reports increased weakness and lethargy. She denies chest pain, no shortness of breath, no hematuria dysuria hematemesis or hematochezia. She denies nausea or vomiting. She denies abdominal pain. She denies dizziness or loss of consciousness. She is on aspirin at home. She denies the use of NSAIDs. At the time of examination patient does not appear to be in distress, patient's daughter is at bedside. Review of Systems 10 systems reviewed, pertinent positive and negative findings as in HPI, no chest pain no abdominal pain. Positive for melena. Past Medical History Past Medical History: Coronary Artery Disease (CAD), GI Bleed, Hypertension Additional Past Medical History / Comment(s): ANEMIA, HIATAL HERNIA, SOB History of Any Multi-Drug Resistant Organisms: None Reported Past Surgical History: Cholecystectomy, Heart Catheterization Additional Past Surgical History / Comment(s): D&C, EGD, COLONOSCOPY Past Anesthesia/Blood Transfusion Reactions: Postoperative Nausea & Vomiting (PONV) Past Psychological History: No Psychological Hx Reported Smoking Status: Never smoker Past Alcohol Use History: None Reported Past Drug Use History: None Reported Medications and Allergies Home Medications Medication Instructions Recorded Confirmed Type Ascorbic Acid [Vitamin C] 1,000 mg PO HS 04/16/22 04/16/22 History Aspirin EC [Ecotrin Low Dose] 81 mg PO HS 04/16/22 04/16/22 History Atorvastatin [Lipitor] 20 mg PO DAILY 04/16/22 04/16/22 History Beetroot 1 tab PO DAILY 04/16/22 04/16/22 History Cholecalciferol [Vitamin D3 (25 50 mcg PO DAILY 04/16/22 04/16/22 History Mcg = 1000 Iu)] Elisha 500 mg PO DAILY 04/16/22 04/16/22 History Latanoprost/Pf [Latanoprost 0.005% 1 drop BOTH EYES HS 04/16/22 04/16/22 History Eye Drop] Losartan [Cozaar] 50 mg PO DAILY 04/16/22 04/16/22 History Metoprolol Tartrate [Lopressor] 12.5 mg PO HS 04/16/22 04/16/22 History Metoprolol Tartrate [Lopressor] 25 mg PO DAILY 04/16/22 04/16/22 History Omeprazole 20 mg PO HS 04/16/22 04/16/22 History Ubidecarenone [Coenzyme Q10] 200 mg PO DAILY 04/16/22 04/16/22 History Allergies Allergy/AdvReac Type Severity Reaction Status Date / Time Sulfa (Sulfonamide Allergy Unknown Verified 04/16/22 15:33 Antibiotics) codeine AdvReac Nausea & Verified 04/16/22 15:33 Vomiting Physical Exam Vitals: Vital Signs Temp Pulse Resp BP Pulse Ox 04/16/22 16:08 65 20 134/51 98 04/16/22 13:33 98 F 78 20 137/73 98 Intake and Output 04/16/22 04/16/22 04/16/22 06:59 14:59 22:59 Other: Weight 74.843 kg Constitutional: No acute distress, conversant, pleasant, appears to be a little bit pale Eyes: Anicteric sclerae, moist conjunctiva, no lid-lag, PERRLA ENMT: NC/AT,Oropharynx clear, no erythema, exudates Neck:Supple, FROM, no masses, or JVD, Lungs: Clear to auscultation, Clear to percussion, Normal respiratory effort, no accessory muscle use Cardiovascular: Heart regular in rate and rhythm, No murmurs, gallops, or rubs no peripheral edema Abdominal: Soft Nontender, nom distended, no guarding, no rebound or rigidity, Normoactive bowel sounds N Skin: Normal temperature, tone, texture, turgor, No induration No subcutaneous nodules, No rash, lesions, No ulcers Extremities:No digital cyanosis No clubbing, Pedal pulses intact and symmetrical Radial pulses intact and symmetrical Normal gait and station, No calf tenderness Psychiatric: Alert and oriented to person, place and time, Appropriate affect Intact judgement Neuro: Muscles Strength 5/5 in all 4 extremities, Sensation to light touch grossly present throughout, Cranial nerves II-XII grossly intact. No focal sensory deficits Results CBC & Chem 7: 04/16/22 14:18 04/16/22 14:18 Labs: Abnormal Lab Results - Last 24 Hours (Table) 04/16/22 04/16/22 04/16/22 Range/Units 14:18 14:18 14:18 RBC 2.86 L (3.80-5.40) m/uL Hgb 8.9 L (11.4-16.0) gm/dL Hct 28.4 L (34.0-46.0) % APTT 17.5 L (22.0-30.0) sec Chloride (98-107) mmol/L Carbon Dioxide (22-30) mmol/L BUN (7-17) mg/dL Glucose (74-99) mg/dL Total Protein (6.3-8.2) g/dL Albumin (3.5-5.0) g/dL Stool Occult Blood Positive H (Negative) 04/16/22 Range/Units 14:18 RBC (3.80-5.40) m/uL Hgb (11.4-16.0) gm/dL Hct (34.0-46.0) % APTT (22.0-30.0) sec Chloride 111 H (98-107) mmol/L Carbon Dioxide 21 L (22-30) mmol/L BUN 47 H (7-17) mg/dL Glucose 104 H (74-99) mg/dL Total Protein 5.6 L (6.3-8.2) g/dL Albumin 3.1 L (3.5-5.0) g/dL Stool Occult Blood (Negative) Assessment and Plan Plan: Assessment and plan: 1. Melena with anemia, possible acute GI bleed of unknown origin: Continue IV fluids, transfuse as indicated, continue to monitor H&H, Hemoccult-positive, hemoglobin down to 8.9 start IV PPI. Hold aspirin. GI consultation 2. Lipidemia: Continue statin 3. Essential hypertension: Hold losartan until patient is more hemodynamically stable. 4. Coronary disease without evidence of recurrence syndrome: Monitor 5. History of peptic ulcer disease: Continue PPI and IV fluids. 6. Hypovolemia: IV fluid resuscitation. Admit inpatient Disposition: Home in 2-3 days DVT prophylaxis: SCDs
[2022-04-16] MEDS: LATANOPROST 0.005% OPHTH DROPS 2.5 ML BTL BOTH EYES SCH (20:05)
[2022-04-16] MEDS: PANTOPRAZOLE 40 MG/10 ML VIAL IVP SCH (20:05)
[2022-04-17 01:38] LABS: Basophils % (A) 0 %; Eosinophils # (A) 0.1 k/uL (0-0.7); Eosinophils % (A) 2 %; HCT 24.9 % (34.0-46.0); HGB 7.7 gm/dL (11.4-16.0); Hypochromasia Moderate; Lymphocytes # (A) 1.1 k/uL (1.0-4.8); Lymphocytes % (A) 23 %; MCH 30.9 pg (25.0-35.0); MCHC 30.9 g/dL (31.0-37.0); MCV 99.9 fL (80.0-100.0); Macrocytosis Slight; Mean Platelet Volume 8.1; Monocytes # (A) 0.4 k/uL (0-1.0); Monocytes % (A) 8 %; Neutrophils # (A) 3.2 k/uL (1.3-7.7); Neutrophils % (A) 64 %; Platelet Count 162 k/uL (150-450); RDW 13.9 % (11.5-15.5); WBC 4.9 k/uL (3.8-10.6)
[2022-04-17] MEDS: PANTOPRAZOLE 40 MG/10 ML VIAL IVP SCH ×2 (08:01→20:08)
[2022-04-17] MEDS: ATORVASTATIN 20 MG TAB PO SCH (09:43)
[2022-04-17 10:57] LABS: Basophils # (A) 0.02 X 10*3/uL (0.00-0.10); Basophils % (A) 0.5 %; Eosinophils # (A) 0.08 X 10*3/uL (0.04-0.35); HCT 23.9 % (37.2-46.3); Immature Grans, Automated 0.2 %; Lymphocytes # (A) 0.86 X 10*3/uL (0.90-5.00); Lymphocytes % (A) 21.1 %; MCH 29.5 pg (27.0-32.0); MCHC 29.3 g/dL (32.0-37.0); MCV 100.8 fL (80.0-97.0); Monocytes # (A) 0.48 X 10*3/uL (0.20-1.00); Monocytes % (A) 11.8 %; NRBC Per 100 WBC 0 /100 WBCS (0.0-0.0); Neutrophils # (A) 2.62 X 10*3/uL (1.80-7.70); Neutrophils % (A) 64.4 %; Platelet Count 153 X 10*3/uL (140-440); RBC 2.37 X 10*6/uL (4.10-5.20); RDW 13.9 % (11.5-14.5); WBC 4.07 X 10*3/uL (4.50-10.00)
[2022-04-17 10:58] LABS: ALT 22 U/L (8-44); AST 22 U/L (13-35); African American GFR (CKD) 91.1 (60.0-200.0); Albumin 2.8 g/dL (3.8-4.9); Albumin/Globulin Ratio 1.71 (1.60-3.17); Alkaline Phosphatase 44 U/L (41-126); Blood Urea Nitrogen 28.1 mg/dL (9.0-27.0); Calcium 8.5 mg/dL (8.7-10.3); Carbon Dioxide 20.4 mmol/L (20.0-27.5); Chloride 114 mmol/L (96-109); Globulin 1.7 g/dL (1.6-3.3); Glucose 90 mg/dL (70-110); Non-African American GFR(CKD) 78.6 (60.0-200.0); Potassium 3.5 mmol/L (3.5-5.5); Sodium 145 mmol/L (135-145); Total Bilirubin <0.15 mg/dL (0.30-1.20); Total Protein 4.5 g/dL (6.2-8.2)
[2022-04-17 11:07] LABS: % Iron Saturation 5.54 (12.00-45.00); Ferritin 28.8 ng/mL (10.0-291.0)
--- NOTE | 2022-04-17 12:45 | P.CONS ---
History of Present Illness - Reason for Consult Consult date: 04/17/22 GI bleed Requesting physician: Nirmal Parra - Chief Complaint Weakness, black stool - History of Present Illness This is a pleasant 86-year-old female who presented to the emergency department with complaints of weakness and fatigue. She states she had black stool Thursday through Thursday and was concerned as she has a history of previous GI bleed. Admitting hemoglobin was 8.9 with a drop to 7.7 today. Gastroenterology was consulted for GI bleed. She has a past medical history including coronary artery disease, anemia and hypertension. She denies any anticoagulation or NSAID use. She does take a daily baby aspirin. She denies any associated abdominal pain, nausea or vomiting. Patient is unsure of her last colonoscopy believes that was 10 years or greater. Last EGD was in February [address] Danielle with findings of moderate sized hiatal hernia and duodenitis with no active bleeding seen. She also had an EGD and small bowel capsule around 2017 without clear bleeding source. The patient did have a positive stool occult blood. She denies any current blood in her bowel movement. No hematemesis. Labs: WBC 4.07 hemoglobin 7.0 hematocrit 23.9 platelet count 153,000 INR 0.9 sodium 145 potassium 3.5 BUN 28 creatinine 0.7 iron 17 TIBC 300 saturation 5.5 ferritin 28.8 total bilirubin less than 0.15 AST 22 ALT 22 alk phos 44 Review of Systems REVIEW OF SYSTEMS: CARDIOPULMONARY: No chest pain or shortness of breath. Gastrointestinal: No epigastric or abdominal pain. No nausea or vomiting. No hematemesis, coffee-ground emesis. Patient reported black stool Thursday through Thursday.. GENITOURINARY: No dysuria or hematuria. MUSCULOSKELETAL: Reports normal range of motion. SKIN: No rashes. No jaundice. ENDOCRINE: No chills, fevers. No excessive weight gain or loss. No polydipsia or polyuria. PSYCHIATRIC: Unremarkable. NEUROLOGY: No change in mental status. Denies dizziness, headache. ENT: Vision unremarkable. CONSTITUTIONAL: No recent weight loss. Increased weakness and fatigue. Past Medical History Past Medical History: Coronary Artery Disease (CAD), GI Bleed, Hypertension Additional Past Medical History / Comment(s): ANEMIA, HIATAL HERNIA, SOB History of Any Multi-Drug Resistant Organisms: None Reported Past Surgical History: Cholecystectomy, Heart Catheterization Additional Past Surgical History / Comment(s): D&C, EGD, COLONOSCOPY Past Anesthesia/Blood Transfusion Reactions: Postoperative Nausea & Vomiting (PONV) Past Psychological History: No Psychological Hx Reported Smoking Status: Never smoker Past Alcohol Use History: None Reported Additional Past Alcohol Use History / Comment(s): STARTED SMOKING A TEEN, QUIT 1977, SMOKED 1PPD Past Drug Use History: None Reported - Past Family History Mother Family Medical History: Pneumonia Additional Family Medical History / Comment(s): at 94, old age Father Family Medical History: Pulmonary Embolus Medications and Allergies Home Medications Medication Instructions Recorded Confirmed Type Ascorbic Acid [Vitamin C] 1,000 mg PO HS 04/16/22 04/16/22 History Aspirin EC [Ecotrin Low Dose] 81 mg PO HS 04/16/22 04/16/22 History Atorvastatin [Lipitor] 20 mg PO DAILY 04/16/22 04/16/22 History Beetroot 1 tab PO DAILY 04/16/22 04/16/22 History Cholecalciferol [Vitamin D3 (25 50 mcg PO DAILY 04/16/22 04/16/22 History Mcg = 1000 Iu)] Elisha 500 mg PO DAILY 04/16/22 04/16/22 History Latanoprost/Pf [Latanoprost 0.005% 1 drop BOTH EYES HS 04/16/22 04/16/22 History Eye Drop] Losartan [Cozaar] 50 mg PO DAILY 04/16/22 04/16/22 History Metoprolol Tartrate [Lopressor] 12.5 mg PO HS 04/16/22 04/16/22 History Metoprolol Tartrate [Lopressor] 25 mg PO DAILY 04/16/22 04/16/22 History Omeprazole 20 mg PO HS 04/16/22 04/16/22 History Ubidecarenone [Coenzyme Q10] 200 mg PO DAILY 04/16/22 04/16/22 History Allergies Allergy/AdvReac Type Severity Reaction Status Date / Time Sulfa (Sulfonamide Allergy Unknown Verified 04/16/22 15:33 Antibiotics) codeine AdvReac Nausea & Verified 04/16/22 15:33 Vomiting Physical Exam Vitals: Vital Signs Temp Pulse Pulse Pulse Resp BP BP 04/17/22 06:55 97.9 F 81 16 137/69 04/17/22 04:27 98.1 F 66 16 137/73 04/16/22 19:55 16 04/16/22 19:21 97.7 F 75 16 135/69 04/16/22 17:39 98.0 F 66 20 128/64 04/16/22 16:08 65 20 134/51 04/16/22 13:33 98 F 78 20 137/73 Pulse Ox 04/17/22 06:55 96 04/17/22 04:27 96 04/16/22 19:55 04/16/22 19:21 97 04/16/22 17:39 98 04/16/22 16:08 98 04/16/22 13:33 98 Intake and Output 04/16/22 04/17/22 04/17/22 22:59 06:59 14:59 Intake Total 150 Balance 150 Intake: Intake, IV Titration 150 Amount Sodium Chloride 0.9% 1, 150 000 ml @ 75 mls/hr IV . [id number] ONE Rx#:[id number] Other: Voiding Method Toilet Toilet # Voids 2 2 Weight 74.843 kg General appearance: The patient is alert, oriented, appears in no acute distress. HET: Head is normocephalic and atraumatic. Conjunctiva pink. Sclera anicteric. Neck: Supple without lymphadenopathy. Trachea midline. Heart: S1 S2. Regular rate and rhythm. Lungs: Clear to auscultation. Abdomen: Soft, nontender, nondistended with bowel sounds. No guarding or rigidity. Skin: No rashes. No jaundice. Extremities: Normal skin color and turgor. No pedal edema. Neurological: No focal deficits. Alert and oriented x3. Results CBC & Chem 7: 04/17/22 07:03 04/17/22 07:03 Labs: Abnormal Lab Results - Last 24 Hours (Table) 04/16/22 04/16/22 04/16/22 Range/Units 14:18 14:18 14:18 RBC 2.86 L (3.80-5.40) m/uL Hgb 8.9 L (11.4-16.0) gm/dL Hct 28.4 L (34.0-46.0) % MCHC (31.0-37.0) g/dL APTT 17.5 L (22.0-30.0) sec Chloride (98-107) mmol/L Carbon Dioxide (22-30) mmol/L BUN (7-17) mg/dL Glucose (74-99) mg/dL Total Protein (6.3-8.2) g/dL Albumin (3.5-5.0) g/dL Stool Occult Blood Positive H (Negative) 04/16/22 04/17/22 Range/Units 14:18 01:07 RBC 2.50 L (3.80-5.40) m/uL Hgb 7.7 L (11.4-16.0) gm/dL Hct 24.9 L (34.0-46.0) % MCHC 30.9 L (31.0-37.0) g/dL APTT (22.0-30.0) sec Chloride 111 H (98-107) mmol/L Carbon Dioxide 21 L (22-30) mmol/L BUN 47 H (7-17) mg/dL Glucose 104 H (74-99) mg/dL Total Protein 5.6 L (6.3-8.2) g/dL Albumin 3.1 L (3.5-5.0) g/dL Stool Occult Blood (Negative) Assessment and Plan (1) GI bleed Narrative/Plan: A 6-year-old with a past medical history including GI bleed who has had previous EGD and small bowel capsule workup in 2017 not with any clear evidence of source for bleed. She also was admitted with complaints of black stool and anemia in 2019 and underwent an EGD with findings of a moderate sized hiatal hernia and duodenitis. She denies any anticoagulation or NSAID use. She denies any GERD, epigastric pain, abdominal pain nausea or vomiting. She was concerned with weakness followed by black stool Thursday through Thursday. She did have a positive stool occult blood. With low hemoglobin on admission. Possible etiologies include peptic ulcer disease, gastritis, esophagitis, AVM or other possible etiologies. Will proceed with EGD tomorrow with possible loss small bowel capsule endoscopy. Discussed with patient recommendation for colonoscopy however she is refusing at this time stating she will not do the prep. Current Visit: Yes Status: Acute Code(s): K92.2 - GASTROINTESTINAL HEMORRHAGE, UNSPECIFIED SNOMED Code(s): 80503980 (2) Anemia Narrative/Plan: Iron studies are consistent with an iron deficiency anemia Current Visit: Yes Status: Acute Code(s): D64.9 - ANEMIA, UNSPECIFIED SNOMED Code(s): 487523732 Plan: 1. Continue symptomatic supportive care 2. Patient may have regular diet, nothing by mouth after midnight 3. Protonix 40 mg twice a day 4. Will proceed with EGD with possible small bowel capsule endoscopy tomorrow, recommended colonoscopy however patient declining at this time as she states she cannot do the prep. 5. Daily CBC transfuse for hemoglobin less than 7 Thank you for this consultation, we will continue to follow. Dr. Sarkis Moore I agree with the dictator's note, documented as a scribe by Keeley Lo.
--- NOTE | 2022-04-17 13:39 | P.PN ---
Subjective Progress Note Date: 04/17/22 Principal diagnosis: GI bleed Patient was seen and examined. No acute events overnight. Patient reports fatigue. No bright red blood per rectum. No melena. No bowel movement. No nausea or vomiting. Objective - Vital Signs Vital signs: Vital Signs Temp 97.4 F L 04/17/22 12:52 Pulse 70 04/17/22 12:52 Resp 16 04/17/22 12:52 BP 127/69 04/17/22 12:52 Pulse Ox 97 04/17/22 12:52 FiO2 Intake & Output 04/16/22 04/17/22 04/17/22 18:59 06:59 18:59 Intake Total 150 Balance 150 Weight 74.843 kg Intake: Intake, IV Titration 150 Amount Sodium Chloride 0.9% 1, 150 000 ml @ 75 mls/hr IV . [id number] ONE Rx#:[id number] Other: Voiding Method Toilet Toilet # Voids 2 2 - Exam General: [non toxic], [no distress], [appears at stated age] Derm: [warm], [dry] Head: [atraumatic], [normocephalic], [symmetric] Eyes: [EOMI], [no lid lag], [anicteric sclera] Mouth: [no lip lesion], [mucus membranes moist] Cardiovascular: [S1S2 reg], [no murmur] Lungs: [CTA bilateral], [no rhonchi, no rales] , [no accessory muscle use] Abdominal: [soft], [ nontender to palpation], [no guarding], [no appreciable organomegaly] Ext: [no gross muscle atrophy], [no edema], [no contractures] Neuro: [no focal neuro deficits] Psych: [Alert], [oriented], [appropriate affect] - Labs CBC & Chem 7: 04/17/22 07:03 04/17/22 07:03 Labs: Abnormal Lab Results - Last 24 Hours (Table) 04/16/22 04/16/22 04/16/22 Range/Units 14:18 14:18 14:18 WBC (4.50-10.00) X 10*3/uL RBC 2.86 L (3.80-5.40) m/uL Hgb 8.9 L (11.4-16.0) gm/dL Hct 28.4 L (34.0-46.0) % MCV (80.0-97.0) fL MCHC (31.0-37.0) g/dL Lymphocytes # (0.90-5.00) X 10*3/uL APTT 17.5 L (22.0-30.0) sec Chloride (98-107) mmol/L Carbon Dioxide (22-30) mmol/L BUN (7-17) mg/dL BUN/Creatinine Ratio (12.00-20.00) Ratio Glucose (74-99) mg/dL Calcium (8.7-10.3) mg/dL Iron (50-170) ug/dL % Saturation (12.00-45.00) Total Bilirubin (0.30-1.20) mg/dL Total Protein (6.3-8.2) g/dL Albumin (3.5-5.0) g/dL Stool Occult Blood Positive H (Negative) 04/16/22 04/17/22 04/17/22 Range/Units 14:18 01:07 07:03 WBC 4.07 L (4.50-10.00) X 10*3/uL RBC 2.50 L 2.37 L (3.80-5.40) m/uL Hgb 7.7 L 7.0 L (11.4-16.0) gm/dL Hct 24.9 L 23.9 L (34.0-46.0) % MCV 100.8 H (80.0-97.0) fL MCHC 30.9 L 29.3 L (31.0-37.0) g/dL Lymphocytes # 0.86 L (0.90-5.00) X 10*3/uL APTT (22.0-30.0) sec Chloride 111 H (98-107) mmol/L Carbon Dioxide 21 L (22-30) mmol/L BUN 47 H (7-17) mg/dL BUN/Creatinine Ratio (12.00-20.00) Ratio Glucose 104 H (74-99) mg/dL Calcium (8.7-10.3) mg/dL Iron (50-170) ug/dL % Saturation (12.00-45.00) Total Bilirubin (0.30-1.20) mg/dL Total Protein 5.6 L (6.3-8.2) g/dL Albumin 3.1 L (3.5-5.0) g/dL Stool Occult Blood (Negative) 04/17/22 04/17/22 Range/Units 07:03 07:03 WBC (4.50-10.00) X 10*3/uL RBC (3.80-5.40) m/uL Hgb (11.4-16.0) gm/dL Hct (34.0-46.0) % MCV (80.0-97.0) fL MCHC (31.0-37.0) g/dL Lymphocytes # (0.90-5.00) X 10*3/uL APTT (22.0-30.0) sec Chloride 114 H (98-107) mmol/L Carbon Dioxide (22-30) mmol/L BUN 28.1 H (7-17) mg/dL BUN/Creatinine Ratio 41.20 H (12.00-20.00) Ratio Glucose (74-99) mg/dL Calcium 8.5 L (8.7-10.3) mg/dL Iron 17 L (50-170) ug/dL % Saturation 5.54 L (12.00-45.00) Total Bilirubin <0.15 L (0.30-1.20) mg/dL Total Protein 4.5 L (6.3-8.2) g/dL Albumin 2.8 L (3.5-5.0) g/dL Stool Occult Blood (Negative) Assessment and Plan Assessment: Assessment and plan: 1. Melena with anemia, possible acute GI bleed of unknown origin: Continue IV fluids, transfuse as indicated, continue to monitor H&H, Hemoccult-positive, hemoglobin down to 7, start IV PPI. Hold aspirin. GI consulted, plans for EGD tomorrow. 2. Lipidemia: Continue statin 3. Essential hypertension: Hold losartan until patient is more hemodynamically stable. 4. Coronary disease without evidence of recurrence syndrome: Monitor 5. History of peptic ulcer disease: Continue PPI and IV fluids. 6. Hypovolemia: DC IVF and encourage hydration by mouth. Admit inpatient Disposition: Home in 1-2 days DVT prophylaxis: SCDs
[2022-04-17 19:22] LABS: HCT 26.1 % (34.0-46.0); HGB 8.2 gm/dL (11.4-16.0); Hypochromasia Moderate; MCH 31.1 pg (25.0-35.0); MCHC 31.3 g/dL (31.0-37.0); MCV 99.3 fL (80.0-100.0); Mean Platelet Volume 7.9; Platelet Count 179 k/uL (150-450); RBC 2.63 m/uL (3.80-5.40); RDW 13.8 % (11.5-15.5)
[2022-04-17] MEDS: LATANOPROST 0.005% OPHTH DROPS 2.5 ML BTL BOTH EYES SCH (20:08)
[2022-04-18 06:25] LABS: HCT 24.2 % (34.0-46.0); HGB 7.5 gm/dL (11.4-16.0); Hypochromasia Moderate; MCH 31.5 pg (25.0-35.0); MCHC 31.2 g/dL (31.0-37.0); MCV 100.8 fL (80.0-100.0); Macrocytosis Slight; Mean Platelet Volume 8.2; Platelet Count 175 k/uL (150-450); RDW 14.3 % (11.5-15.5); WBC 3.4 k/uL (3.8-10.6)
[2022-04-18 06:37] VITALS: RESP 16
[2022-04-18] MEDS ORDERED: PROPOFOL 10 MG/ML 20 ML VIAL IV ONE (06:46)
[2022-04-18] MEDS ORDERED: IV FLUID CONTINUATION 400 ML IV ONE (06:46)
[2022-04-18] MEDS ORDERED: LIDOCAINE 2% INJ 20 MG/ML (2 ML VIAL) ONE (06:46)
--- NOTE | 2022-04-18 07:01 | P.PCN ---
Date of Procedure: 04/18/22 Procedure(s) Performed: BRIEF HISTORY: Patient is a 86-year-old, pleasant, white female admitted hospital with black stools for the last 3-4 days duration and symptomatic anemia with a hemoglobin of 7.5 g/dL. She is scheduled for an upper endoscopy to evaluate further. PROCEDURE PERFORMED: Esophagogastroduodenoscopy. PREOPERATIVE DIAGNOSIS: Black tarry stools and symptomatic anemia. IV sedation per anesthesia. PROCEDURE: After informed consent was obtained, the patient was brought into the endoscopy unit. IV sedation was administered by Anesthesia under continuous monitoring. Initially the Olympus GIF-140 video endoscope was inserted into the mouth. Esophagus intubated without any difficulty. It was gradually advanced into the stomach and duodenum and carefully examined. The bulb and the second part of the duodenum appeared normal. The scope at this time was withdrawn to the stomach, adequately insufflated with air, and upon careful examination, mucosa of the antrum, body, cardia and the fundus appeared normal. There were large paraesophageal hiatal hernia noted multiple Mati erosions noted at the diaphragmatic impression with no active bleeding. The scope was then withdrawn into the esophagus. The GE junction was located at 30 cm from the incisors. The esophagus appeared normal. There were no erosions or ulcerations seen and the patient tolerated the procedure well. IMPRESSION: 1. Large paraesophageal hiatal hernia with Mati erosions but no active bleeding. 2. No evidence of esophagitis or peptic ulcer. RECOMMENDATIONS: The findings of this examination were discussed with the patient . At this time will proceed with small bowel capsule endoscopy to rule out small bowel source of bleeding and if this is negative consider an outpatient colonoscopy. In the meantime follow CBC daily.
[2022-04-18] MEDS ORDERED: SIMETHICONE 40 MG/0.6 ML DROPS 2,000 MG/30 ML BOTTLE PO ONE (07:30)
[2022-04-18] MEDS: PANTOPRAZOLE 40 MG/10 ML VIAL IVP SCH (08:00)
--- NOTE | 2022-04-18 10:09 | P.DS ---
Providers Date of admission: 04/16/22 15:59 Expected date of discharge: 04/18/22 Attending physician: Georgina Griffiths DO Consults: 04/16/22 15:59 Consult Physician Urgent Consulting Provider: Sabrina Moore Consult Reason/Comments: GI bleed Do you want consulting provider notified?: Yes Primary care physician: Blaise Patel MD Hospital Course: This is an 86-year-old white female who reported to the hospital with melena. Symptoms started a few days ago. She also reports increased weakness and lethargy. She denies chest pain, no shortness of breath, no hematuria dysuria hematemesis or hematochezia. She denies nausea or vomiting. She denies abdominal pain. She denies dizziness or loss of consciousness. She is on aspirin at home. She denies the use of NSAIDs. At the time of examination patient does not appear to be in distress, patient's daughter is at bedside. Patient had one melanotic stool during her hospitalization. Her hemoglobin trended from a 0.9, 7.7, 7, 8.2, 7.5. Her aspirin was held. Patient underwent EGD which showed large hiatal hernia with erosions but no active bleeding. Patient refused colonoscopy during her hospitalization. Small bowel capsule endoscopy was performed which is pending at the time of this note. Patient was seen and examined this morning. No acute events overnight. Patient reports feeling generally well and wanting to be discharged home. She denied any chest pain, shortness breath or palpitations. No nausea or vomiting. No fever chills. Patient advised follow-up with her PCP within 1-3 days of discharge. Advised to obtain CBC within 3 days of discharge to be followed by PCP. Advised to follow- up with GI Dr. Moore within 1 week of discharge. Patient verbalized understanding of the plan. She was pending GI clearance at the time of this note. General: [non toxic], [no distress], [appears at stated age] Derm: [warm], [dry] Head: [atraumatic], [normocephalic], [symmetric] Eyes: [EOMI], [no lid lag], [anicteric sclera] Mouth: [no lip lesion], [mucus membranes moist] Cardiovascular: [S1S2 reg], [no murmur] Lungs: [CTA bilateral], [no rhonchi, no rales] , [no accessory muscle use] Ext: [no gross muscle atrophy], [no edema], [no contractures] Neuro: [no focal neuro deficits] Psych: [Alert], [oriented], [appropriate affect] Discharge Diagnosis: Melena Hiatal hernia Macrocytic anemia Dyslipidemia Hypertension CAD Procedures: Capsule endoscopy EGD Patient Condition at Discharge: Stable Plan - Discharge Summary Discharge Rx Participant: No New Discharge Prescriptions: New Pantoprazole [Protonix] 40 mg PO DAILY #30 tab Ferrous Sulfate [Iron (65 MG Elemental)] 325 mg PO BID #60 tab Continue Beetroot 1 tab PO DAILY Metoprolol Tartrate [Lopressor] 12.5 mg PO HS Ubidecarenone [Coenzyme Q10] 200 mg PO DAILY Cholecalciferol [Vitamin D3 (25 Mcg = 1000 Iu)] 50 mcg PO DAILY Elisha 500 mg PO DAILY Aspirin EC [Ecotrin Low Dose] 81 mg PO HS Metoprolol Tartrate [Lopressor] 25 mg PO DAILY Losartan [Cozaar] 50 mg PO DAILY Latanoprost/Pf [Latanoprost 0.005% Eye Drop] 1 drop BOTH EYES HS Atorvastatin [Lipitor] 20 mg PO DAILY Ascorbic Acid [Vitamin C] 1,000 mg PO HS Discontinued Omeprazole 20 mg PO HS Discharge Medication List Ascorbic Acid [Vitamin C] 1,000 mg PO HS 04/16/22 [History] Aspirin EC [Ecotrin Low Dose] 81 mg PO HS 04/16/22 [History] Atorvastatin [Lipitor] 20 mg PO DAILY 04/16/22 [History] Beetroot 1 tab PO DAILY 04/16/22 [History] Cholecalciferol [Vitamin D3 (25 Mcg = 1000 Iu)] 50 mcg PO DAILY 04/16/22 [History] Elisha 500 mg PO DAILY 04/16/22 [History] Latanoprost/Pf [Latanoprost 0.005% Eye Drop] 1 drop BOTH EYES HS 04/16/22 [History] Losartan [Cozaar] 50 mg PO DAILY 04/16/22 [History] Metoprolol Tartrate [Lopressor] 12.5 mg PO HS 04/16/22 [History] Metoprolol Tartrate [Lopressor] 25 mg PO DAILY 04/16/22 [History] Ubidecarenone [Coenzyme Q10] 200 mg PO DAILY 04/16/22 [History] Ferrous Sulfate [Iron (65 MG Elemental)] 325 mg PO BID #60 tab 04/18/22 [Rx] Pantoprazole [Protonix] 40 mg PO DAILY #30 tab 04/18/22 [Rx] Follow up Appointment(s)/Referral(s): Blaise Patel MD [Primary Care Provider] - 1-2 days Sabrina Moore MD [STAFF PHYSICIAN] - 1 Week Ambulatory/Diagnostic Orders: Complete Blood Count w/diff [LAB.AMB] Time Frame: 3 Days, Location: None Selected Activity/Diet/Wound Care/Special Instructions: Diet: Cardiac FU PCP within 1-3 days of DC. Obtain CBC within 3 days to be followed up by PCP. FU GI Dr. Moore within 1 week of DC. Take all medications as advised. Come back to the ED or call 911 for worsening chest pain, shortness of breath, palpitations, lightheadedness. Discharge Disposition: HOME SELF-CARE
[2022-04-18] MEDS: ATORVASTATIN 20 MG TAB PO SCH (10:44)
[2022-04-18 12:53] VITALS: BP 174/63; PULSE 80; TEMP 97.5
[2022-04-18] MEDS ORDERED: METOPROLOL TARTRATE 12.5 MG TAB PO SCH (21:00)
[2022-04-19] MEDS ORDERED: LOSARTAN 50 MG TAB PO SCH (09:00)
[2022-04-19] MEDS ORDERED: METOPROLOL TARTRATE 25 MG TAB PO SCH (09:00)
== END 2022-04-18 17:01 | disposition home or self-care (01) ==
LOC: EC 13:26 → 5NMEDONC 15:59
PROVIDERS: ADMIT Internal Medicine; ATTEND Internal Medicine
DX: K44.9 Diaphragmatic hernia without obstruction or gangrene (principal); D64.9 Anemia, unspecified; K92.1 Melena; E86.1 Hypovolemia; E78.5 Hyperlipidemia, unspecified; I25.10 Atherosclerotic heart disease of native coronary artery without angina pectoris; I10 Essential (primary) hypertension; Z90.49 Acquired absence of other specified parts of digestive tract; Z98.890 Other specified postprocedural states; Z87.19 Personal history of other diseases of the digestive system; Z79.899 Other long term (current) drug therapy; Z79.82 Long term (current) use of aspirin; Z88.5 Allergy status to narcotic agent; Z88.2 Allergy status to sulfonamides
CPT/HCPCS: 96376; 96361 ×3; 96374; 99285; 36415; 93005; 86900; 86901; 80053 ×2; 82728; 83540; 83550; 83735; 84484; 85025 ×2; 85027 ×2; 85610; 85730; 86850; 82272; 43235; 91110; G0378 ×3; J2704; C9113 ×3; J2001